=== PATIENT | male | born 1940 | race Caucasian/White ===

== ENCOUNTER 2016-06-10 17:02 | Observation (INO) | payer MEDICARE, BC ==
--- NOTE | 2016-06-10 18:31 | Emergency Department Record ---
History of Present Illness - General Chief complaint: GI Bleed Stated complaint: GI BLEED Time Seen by Provider: 06/10/16 17:05 Source: Patient Mode of Arrival: Ambulatory Limitations: No limitations - History of Present Illness Initial comments: pt had rectal bleeding this am. enough to turn the water red. he has no pain. he had this once previously and was scoped with no etiology found. MD complaint: Blood on toilet paper, Blood streaked stool, Gross hematochezia Onset/Timin -: Hour(s) Radiation: None Quality: Painless Improves with: None Worsens with: Bowel movement Context: Blood thinners Associated Symptoms: Denies other symptoms Treatments Prior to Arrival: None - Related Data Home Medications Medication Instructions Recorded Confirmed Last Taken Allopurinol [Zyloprim] 300 mg PO DAILY 09/02/15 06/10/16 01/25/16 Amlodipine Besylate [Norvasc] 5 mg PO DAILY 09/02/15 06/10/16 06/09/16 Ascorbic Acid [Vitamin C] 1,000 mg PO DAILY 09/02/15 06/10/16 01/25/16 Cholecalciferol (Vitamin D3) 1,000 unit PO DAILY 09/02/15 06/10/16 01/25/16 [Vitamin D3] Insulin Glargine,Hum.rec.anlog 26 unit SQ QPM 09/02/15 06/10/16 01/25/16 [Lantus] Metformin HCl [Glucophage] 850 mg PO BID 09/02/15 06/10/16 01/25/16 Rivaroxaban [Xarelto] 20 mg PO DAILY 09/02/15 06/10/16 01/25/16 Simvastatin [Zocor] 20 mg PO QHS 09/02/15 06/10/16 06/09/16 Allergies Allergy/AdvReac Type Severity Reaction Status Date / Time aspirin Allergy HIVES Verified 06/10/16 17:15 Penicillins Allergy PT UNSURE Verified 06/10/16 17:15 OF REACTION Sulfa (Sulfonamide Allergy RASH Verified 06/10/16 17:15 Antibiotics) lactose AdvReac NAUSEA AND Verified 06/10/16 17:15 VOMITING Travel Screening - Travel/Exposure Within Last 30 Days Have you traveled within the last 30 days?: No Review of Systems Reviewed: No additional complaints except as noted below Constitutional: Reports: As per HPI. Denies: Chills, Fever, Malaise, Night sweats, Weakness, Weight change Eyes: Reports: As per HPI. Denies: Eye discharge, Eye pain, Photophobia, Vision change ENT: Reports: As per HPI. Denies: Congestion, Dental pain, Ear pain, Epistaxis , Hearing loss, Throat pain Respiratory: Reports: As per HPI. Denies: Cough, Dyspnea, Hemoptysis, Stridor, Wheezes Cardiovascular: Reports: As per HPI. Denies: Arrhythmia, Chest pain, Dyspnea on exertion, Edema, Murmurs, Orthopnea, Palpitations, Paroxysmal nocturnal dyspnea, Rheumatic Fever, Syncope Endocrine: Reports: As per HPI. Denies: Fatigue, Heat or cold intolerance, Polydipsia, Polyuria Gastrointestinal: Reports: As per HPI. Denies: Abdominal pain, Constipation, Diarrhea, Hematemesis, Hematochezia, Melena, Nausea, Vomiting Genitourinary: Reports: As per HPI. Denies: Dysuria, Frequency, Hematuria, Incontinence, Retention, Testicular pain, Testicular mass, Urgency Musculoskeletal: Reports: As per HPI. Denies: Arthralgia, Back pain, Gout, Joint swelling, Myalgia, Neck pain Skin: Reports: As per HPI. Denies: Bruising, Change in color, Change in hair/ nails, Lesions, Pruritus, Rash Neurological: Reports: As per HPI. Denies: Abnormal gait, Confusion, Headache, Numbness, Paresthesias, Seizure, Tingling, Tremors, Vertigo, Weakness Psychiatric: Reports: As per HPI. Denies: Anxiety, Auditory hallucinations, Depression, Homicidal thoughts, Suicidal thoughts, Visual hallucinations Hematological/Lymphatic: Reports: As per HPI. 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 3L home O2. - CARDIOVASCULAR Hx Cardio Disorders: Yes Hx Hypertension: Yes Hx Irregular Heartbeat: Yes (A-fib) Comment:: High cholesterol - NEURO Hx Neuro Disorders: Yes Hx Neuropathy: Yes (Jean Paul. Lower extremities) - GI Hx GI Disorders: No - Hx Genitourinary Disorders: Yes Hx Bladder Problem: Yes Hx Kidney Stones: Yes Hx UTI: Yes - ENDOCRINE Hx Endocrine Disorders: No Hx Diabetes: Yes Hx Thyroid Disease: No - MUSCULOSKELETAL Hx Musculoskeletal Disorders: Yes Hx Gout: Yes - PSYCH Hx Psych Problems: No - HEMATOLOGY/ONCOLOGY Hx Hematology/Oncology Disorders: Yes Hx Cancer: Yes (Testicular) Hx Chemotherapy: Yes Hx Radiation Therapy: Yes Family Medical History Any Significant Family History?: Yes Hx Cancer: Mother Hx Diabetes: Father, Brother/Sister Hx Heart Disease: Father Physical Exam - General General Appearance: Alert, Oriented x3, Cooperative, No acute distress - Head Head exam: Normal inspection - Eye Eye exam: Normal appearance, PERRL, EOMI Pupils: Normal accommodation - ENT ENT exam: Normal exam, Mucous membranes moist, Normal external ear exam, Normal orophraynx Ear exam: Normal external inspection. negative: External canal tenderness Nasal Exam: Normal inspection. negative: Discharge, Sinus tenderness Mouth exam: Normal external inspection, Tongue normal Teeth exam: Normal inspection. negative: Dental caries Throat exam: Normal inspection. negative: Tonsillar erythema, Tonsillar exudate - Neck Neck exam: Normal inspection, Full ROM. negative: Tenderness - Respiratory Respiratory exam: Normal lung sounds bilaterally. negative: Respiratory distress - Cardiovascular Cardiovascular Exam: Regular rate, Normal rhythm, Normal heart sounds - GI/Abdominal GI/Abdominal exam: Soft, Normal bowel sounds. negative: Tenderness - Rectal Rectal exam: Heme (+) stool, Other (gross blood surrounding rectum) - exam: Deferred - Extremities Extremities exam: Normal inspection, Full ROM, Normal capillary refill. negative: Tenderness - Back Back exam: Reports: Normal inspection, Full ROM. Denies: Muscle spasm, Rash noted, Tenderness - Neurological Neurological exam: Alert, Normal gait, Oriented X3, Reflexes normal - Psychiatric Psychiatric exam: Normal affect, Normal mood - Skin Skin exam: Dry, Intact, Normal color, Warm Course Vital Signs 06/10/16 17:08 Temperature 97.9 F Pulse Rate 98 H Respiratory 16 Rate Blood Pressure 143/86 Pulse Ox 97 Medical Decision Making - Management Options MDM Management: Additional Work-up Planned (e.g. ADM/Transfer/OP Study) - Data Complexity MDM Data: Labs Ordered and/or Reviewed - Lab Data Result diagrams: 06/10/16 19:01 06/10/16 19:01 Disposition Disposition: Admit Clinical Impression: Lower GI bleed Disposition: Still a Patient at [facility] Decision to Admit: Admit from ER Decision to Admit Date: 06/10/16 Decision to Admit Time: 20:01 Forms: Patient Portal Access
[2016-06-10 19:03] LABS: BASO % 0.2 % (0-6); EOS % 2.6 % (0-6); GRAN % 73.6 % (47-80); HEMATOCRIT 38.5 % (42.0-52.0); HEMOGLOBIN 12.3 gm/dl (14.0-18.0); LYMPH % 17.1 % (16-45); MEAN CELL VOLUME 86.1 fl (81-97); MEAN CORPUSCULAR HEMOGLOBIN 27.5 pg (27-33); MEAN CORPUSCULAR HGB CONC 31.9 g/dl (32-36); MEAN PLATELET VOLUME 11.1 fl (7.4-10.4); MONO % 6.5 % (0-9); PLATELET COUNT 244 K/uL (130-400); RED BLOOD COUNT 4.47 M/uL (4.40-5.70); RED CELL DISTRIBUTION WIDTH 14.7 % (11.5-14.5); WHITE BLOOD COUNT W/O DIFF 8.4 K/uL (4.2-12.2)
[2016-06-10 19:15] LABS: ANION GAP 14.6 (7-16); BLOOD UREA NITROGEN 25 mg/dL (9-20); CARBON DIOXIDE 30.4 mmol/L (22-30); CREATININE 1.1 mg/dL (0.66-1.25); EST GLOMERULAR FILTRATION RATE > 60 ml/min; GLUCOSE,RANDOM 152 mg/dL (70-110)
[2016-06-10 19:17] LABS: INR 1.04; PARTIAL THROMBOPLASTIN TIME 28.7 SECONDS (24.5-39.1); PROTHROMBIN TIME (PATIENT) 11.7 SECONDS (9.5-12.1)
[2016-06-10] MEDS ORDERED: ACETAMINOPHEN 500 MG TABLET PO PRN (21:00)
[2016-06-10] MEDS ORDERED: POTASSIUM CHLORIDE 10 MEQ TAB PO SCH (21:00)
[2016-06-10 21:30] LABS: ABO GROUP A; ANTIBODY SCREEN NEGATIVE (NEGATIVE); RH TYPE NEGATIVE
[2016-06-10] MEDS ORDERED: [UNRECOGNIZED DRUG - OTHER] INH SCH (22:00)
[2016-06-10] MEDS ORDERED: METFORMIN HCL 850 MG PO SCH (22:00)
[2016-06-10] MEDS ORDERED: SIMVASTATIN 20 MG TABLET PO SCH (22:00)
[2016-06-10] MEDS ORDERED: BUMETANIDE 1 MG TABLET PO SCH (22:00)
--- NOTE | 2016-06-11 05:50 | History & Physical ---
History of Present Illness - Date of Service Date of Service for History & Physical: 06/11/16 - History of Present Illness Admitting Diagnosis: rectal bleeding History of Present Illness: 76 yo m admitted with cc of rectal bleeding. Past medical history of HTN, atrial fibrillation, elevated cholesterol, chronic bilateral lower extremity neuropathy, nephrolithiasis, insulin dependent diabetes mellitus type 2, gout, arthritis, testicular cancer diagnosed 7years ago and treated with chemotherapy and radiation, GUSTABO, CHF, obesity and venous insufficiency. 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 Rectal bleeding began 06/10/16 around 11am. Patient states he had a bowel movement and noted blood on the toilet paper and in the toilet bowl. He can't give me an estimate of how much. He then laid down for a few hours and when he went to the restroom again a few hours later, he noted BRB on the toilet paper once again. He denies any aggravating factors. Alleviated on it's own. No associated symptoms. States he had GI upset back in the fall though denies any since that resolved. No diarrhea, constipation, abd or rectal pain, lightheadedness, dizziness, fatigue, acid reflux, increased gas/bloating, CP or N/V. While in the ER, VSS, hgb 12.3 (about baseline for patient), hct 38.5, plt 244, wbc 8.4, electrolytes normal, BUN 25, Cr. 1.1, glucose 152. PT/INR normal. Patient denies any rectal exam in the, however states the ED physician noted bright red blood on back side. Noting patient is anticoagulated for h/o atrial fibrillation, he was admitted for further medical management. This morning, patient is lying in bed comfortably. He denies any GI bleeding. He has not had any bowel movements. Denies any GI symptoms. No lightheadedness or dizziness. Tolerated breakfast. Reports h/o GI bleed 4-5 years ago though states a source was never found. Last EGD/colonoscopy was at this time at [facility]. No personal or family h/o CRC or IBD. Denies any daily NSAID use. No change in bowel habits. No additional concerns at this time. PCP: Dr. Denson Travel Screening - Travel/Exposure Within Last 30 Days Have you traveled within the last 30 days?: No - Travel/Exposure Within Last Year Have you traveled outside the [place] in the last year?: No - Additonal Travel Details Have you been exposed to anyone with a communicable illness?: No Review of Systems Constitutional: Reports: As per HPI. Denies: Chills, Fever, Malaise, Night sweats, Weakness, Weight change Eyes: Reports: As per HPI. Denies: Eye discharge, Eye pain, Photophobia, Vision change ENT: Reports: As per HPI. Denies: Congestion, Dental pain, Ear pain, Epistaxis , Hearing loss, Throat pain Respiratory: Reports: As per HPI. Denies: Cough, Dyspnea, Hemoptysis, Stridor, Wheezes Cardiovascular: Reports: As per HPI. Denies: Arrhythmia, Chest pain, Dyspnea on exertion, Edema, Murmurs, Orthopnea, Palpitations, Paroxysmal nocturnal dyspnea, Rheumatic Fever, Syncope Endocrine: Reports: As per HPI. Denies: Fatigue, Heat or cold intolerance, Polydipsia, Polyuria Gastrointestinal: Reports: As per HPI. Denies: Abdominal pain, Constipation, Diarrhea, Hematemesis, Hematochezia, Melena, Nausea, Vomiting Genitourinary: Reports: As per HPI. Denies: Dysuria, Frequency, Hematuria, Incontinence, Retention, Testicular pain, Testicular mass, Urgency Musculoskeletal: Reports: As per HPI. Denies: Arthralgia, Back pain, Gout, Joint swelling, Myalgia, Neck pain Skin: Reports: As per HPI. Denies: Bruising, Change in color, Change in hair/ nails, Lesions, Pruritus, Rash Neurological: Reports: As per HPI. Denies: Abnormal gait, Confusion, Headache, Numbness, Paresthesias, Seizure, Tingling, Tremors, Vertigo, Weakness Psychiatric: Reports: As per HPI. Denies: Anxiety, Auditory hallucinations, Depression, Homicidal thoughts, Suicidal thoughts, Visual hallucinations Hematological/Lymphatic: Reports: As per HPI. 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 3L home O2. - CARDIOVASCULAR Hx Cardio Disorders: Yes Hx Hypertension: Yes Hx Irregular Heartbeat: Yes (A-fib) Comment:: High cholesterol - NEURO Hx Neuro Disorders: Yes Hx Neuropathy: Yes (Jean Paul. Lower extremities) - GI Hx GI Disorders: No - Hx Genitourinary Disorders: Yes Hx Bladder Problem: Yes (urge incontinence) Hx Kidney Stones: Yes Hx UTI: Yes - ENDOCRINE Hx Endocrine Disorders: No Hx Diabetes: Yes Hx Thyroid Disease: No - MUSCULOSKELETAL Hx Musculoskeletal Disorders: Yes Hx Gout: Yes - PSYCH Hx Psych Problems: No - HEMATOLOGY/ONCOLOGY Hx Hematology/Oncology Disorders: Yes Hx Cancer: Yes (Testicular) Hx Chemotherapy: Yes Hx Radiation Therapy: Yes Family Medical History Any Significant Family History?: Yes Hx Cancer: Mother Hx Diabetes: Father, Brother/Sister Hx Heart Disease: Father H&P Meds/Allergies - Allergies Allergies: Allergies Allergy/AdvReac Type Severity Reaction Status Date / Time aspirin Allergy HIVES Verified 06/10/16 17:15 Penicillins Allergy PT UNSURE Verified 06/10/16 17:15 OF REACTION Sulfa (Sulfonamide Allergy RASH Verified 06/10/16 17:15 Antibiotics) lactose AdvReac NAUSEA AND Verified 06/10/16 17:15 VOMITING - Home Medications Home Medications Medication Instructions Recorded Confirmed Last Taken Allopurinol [Zyloprim] 300 mg PO DAILY 09/02/15 06/10/16 1 Day Ago Amlodipine Besylate [Norvasc] 5 mg PO DAILY 09/02/15 06/10/16 06/09/16 Ascorbic Acid [Vitamin C] 1,000 mg PO DAILY 09/02/15 06/10/16 01/25/16 Cholecalciferol (Vitamin D3) 1,000 unit PO DAILY 09/02/15 06/10/16 01/25/16 [Vitamin D3] Insulin Glargine,Hum.rec.anlog 26 unit SQ QPM 09/02/15 06/10/16 06/10/16 [Lantus] Metformin HCl [Glucophage] 850 mg PO BID 09/02/15 06/10/16 1 Day Ago Rivaroxaban [Xarelto] 20 mg PO DAILY 09/02/15 06/10/16 1 Day Ago Simvastatin [Zocor] 20 mg PO QHS 09/02/15 06/10/16 1 Day Ago - Active Medications Active Medications: Current Medications Acetaminophen (Tylenol 500mg Tab) 1,000 mg PO Q6H PRN PRN Reason: PAIN/TEMP Amlodipine Besylate (Norvasc) 5 mg PO DAILY [facility] Bumetanide (Bumex) 1 mg PO BID [facility] Last Admin: 06/10/16 21:35 Dose: 1 mg Non-Formulary Medication (Allopurinol [Zyloprim]) 300 mg PO DAILY [facility] Non-Formulary Medication (C Pap Mask) 0 unit INH QHS [facility] Non-Formulary Medication (Insulin Glargine,Hum.Rec.Anlog [Lantus]) 26 unit SQ QPM [facility] Non-Formulary Medication (Metformin Hcl [Glucophage]) 850 mg PO BID [facility] Last Admin: 06/10/16 21:35 Dose: 850 mg Non-Formulary Medication (Solifenacin Succinate [Vesicare]) 10 mg PO DAILY [facility] Potassium Chloride (Klor-Con) 10 meq PO QD [facility] Last Admin: 06/10/16 21:35 Dose: 10 meq Rivaroxaban (Xarelto) 20 mg PO DAILY [facility] Simvastatin (Zocor) 20 mg PO QHS [facility] Last Admin: 06/10/16 21:35 Dose: 20 mg Physical Exam - Vital Signs Vital Signs: Vital Signs - Last 24 Hrs Temp Pulse Resp BP Pulse Ox 06/10/16 21:30 70 20 06/10/16 21:00 97.6 F 73 20 140/73 96 - General General Appearance: Alert, Oriented x3, Cooperative, No acute distress Limitations: No limitations - Head Head exam: Normal inspection - Eye Eye exam: Normal appearance, PERRL, EOMI Pupils: Normal accommodation - ENT ENT exam: Normal exam, Mucous membranes moist, Normal external ear exam, Normal orophraynx Ear exam: Normal external inspection. negative: External canal tenderness Nasal Exam: Normal inspection. negative: Discharge, Sinus tenderness Mouth exam: Normal external inspection, Tongue normal Teeth exam: Normal inspection. negative: Dental caries Throat exam: Normal inspection. negative: Tonsillar erythema, Tonsillar exudate - Neck Neck exam: Normal inspection, Full ROM. negative: Tenderness - Respiratory Respiratory exam: Normal lung sounds bilaterally. negative: Respiratory distress - Cardiovascular Cardiovascular Exam: Regular rate, Normal rhythm, Normal heart sounds - GI/Abdominal GI/Abdominal exam: Soft, Normal bowel sounds. negative: Tenderness - Rectal Rectal exam: Heme (+) stool, Hemorrhoids (large external at 12 oclock position) , Other (gross blood surrounding rectum) - exam: Deferred - Extremities Extremities exam: Normal inspection, Full ROM, Normal capillary refill. negative: Tenderness - Back Back exam: Reports: Normal inspection, Full ROM. Denies: Muscle spasm, Rash noted, Tenderness - Neurological Neurological exam: Alert, Normal gait, Oriented X3, Reflexes normal - Psychiatric Psychiatric exam: Normal affect, Normal mood - Skin Skin exam: Dry, Intact, Normal color, Warm Results - Labs Result Diagrams: 06/11/16 06:25 06/10/16 19:01 VTE H&P Assessment - Risk for VTE Risk for VTE: Yes Risk Level: Moderate Risk Assessment Date: 06/11/16 Risk Assessment Time: 10:00 VTE Orders Placed or Will Be Placed: Yes Plan - Detailed Diagnosis and Plan (1) Lower GI bleed Current Visit: Yes Status: Acute Base Code: K92.2 - GASTROINTESTINAL HEMORRHAGE, UNSPECIFIED Comment: 06/11/16: anorectal vs. diverticular vs. other? rectal exam revealed large external hemorrhoid at 12 o clock position along w/ old blood. H/H stable. No rectal bleeding today. Will request EGD/Colonoscopy records from [facility]. Patient has appt with Dr. Alexis ([employer]) set up for Tuesday, Jun 14 @ 1430. Will continue to monitor for any signs of GI bleeding. Will continue anti coagulation as risk of stopping medication outweights benefit noting there's not present GI bleeding. (2) DVT prophylaxis Current Visit: No Status: Acute Base Code: [id number] - Priority: High Comment: 06/11/16: Patient is currently on xarelto. This will offer DVT prophylaxis (3) Anemia of chronic disease Current Visit: No Status: Acute Base Code: D63.8 - ANEMIA IN OTHER CHRONIC DISEASES CLASSIFIED ELSEWHERE Comment: 06/11/16: Hgb remains stable. no signs of GI bleeding during admission. (4) DNR (do not resuscitate) Current Visit: No Status: Acute Base Code: Z66 - DO NOT RESUSCITATE Comment: 06/11/16: Patient remains DNR while hospitalized
[2016-06-11 06:39] LABS: BASO % 0.1 % (0-6); EOS % 4.7 % (0-6); GRAN % 65.4 % (47-80); HEMATOCRIT 37.4 % (42.0-52.0); HEMOGLOBIN 11.9 gm/dl (14.0-18.0); LYMPH % 22.1 % (16-45); MEAN CELL VOLUME 86.6 fl (81-97); MEAN CORPUSCULAR HEMOGLOBIN 27.5 pg (27-33); MEAN CORPUSCULAR HGB CONC 31.8 g/dl (32-36); MEAN PLATELET VOLUME 10.9 fl (7.4-10.4); MONO % 7.7 % (0-9); PLATELET COUNT 233 K/uL (130-400); RED BLOOD COUNT 4.32 M/uL (4.40-5.70); RED CELL DISTRIBUTION WIDTH 14.6 % (11.5-14.5); WHITE BLOOD COUNT W/O DIFF 7.3 K/uL (4.2-12.2)
[2016-06-11] MEDS ORDERED: ALLOPURINOL 100 MG TAB PO SCH (10:00)
[2016-06-11] MEDS ORDERED: PATIENT OWN MED: VESICARE 10 MG PO SCH (10:00)
[2016-06-11] MEDS ORDERED: METFORMIN 850 MG PO SCH (10:00)
[2016-06-11] MEDS ORDERED: RIVAROXABAN 20 MG TABLET PO SCH (10:00)
[2016-06-11] MEDS ORDERED: POTASSIUM CHLORIDE 10 MEQ TAB PO SCH (10:00)
[2016-06-11] MEDS: BUMETANIDE 1 MG TABLET PO SCH ×2 (11:10→16:10)
--- NOTE | 2016-06-11 16:04 | Discharge Summary ---
Providers Discharge Summary Date: 06/11/16 Date of admission: 06/10/16 20:52 Expected Date of Discharge: 06/11/16 Attending physician: ORALIA GONZALEZ Primary care physician: ORALIA GONZALEZ Physical Exam - Vital Signs Vital Signs: Vital Signs - Last 24 Hrs Temp Pulse Resp BP Pulse Ox 06/11/16 13:00 98.1 F 82 18 143/77 96 06/11/16 09:00 20 06/11/16 05:00 97.7 F 74 20 138/74 95 06/10/16 21:30 70 20 06/10/16 21:00 97.6 F 73 20 140/73 96 - General General Appearance: Alert, Oriented x3, Cooperative, No acute distress Limitations: No limitations - Head Head exam: Normal inspection - Eye Eye exam: Normal appearance, PERRL, EOMI Pupils: Normal accommodation - ENT ENT exam: Normal exam, Mucous membranes moist, Normal external ear exam, Normal orophraynx Ear exam: Normal external inspection. negative: External canal tenderness Nasal Exam: Normal inspection. negative: Discharge, Sinus tenderness Mouth exam: Normal external inspection, Tongue normal Teeth exam: Normal inspection. negative: Dental caries Throat exam: Normal inspection. negative: Tonsillar erythema, Tonsillar exudate - Neck Neck exam: Normal inspection, Full ROM. negative: Tenderness - Respiratory Respiratory exam: Normal lung sounds bilaterally. negative: Respiratory distress - Cardiovascular Cardiovascular Exam: Regular rate, Normal rhythm, Normal heart sounds - GI/Abdominal GI/Abdominal exam: Soft, Normal bowel sounds. negative: Tenderness - Rectal Rectal exam: Hemorrhoids (large external at 12 oclock position) - exam: Deferred - Extremities Extremities exam: Normal inspection, Full ROM, Normal capillary refill. negative: Tenderness - Back Back exam: Reports: Normal inspection, Full ROM. Denies: Muscle spasm, Rash noted, Tenderness - Neurological Neurological exam: Alert, Normal gait, Oriented X3, Reflexes normal - Psychiatric Psychiatric exam: Normal affect, Normal mood - Skin Skin exam: Dry, Intact, Normal color, Warm Hospitalization - Hospitalization Admission Diagnosis: rectal bleeding - Problem List/Discharge Diagnosis (1) Lower GI bleed Current Visit: Yes Status: Acute Base Code: K92.2 - GASTROINTESTINAL HEMORRHAGE, UNSPECIFIED Comment: 06/11/16: anorectal vs. diverticular vs. other? rectal exam revealed large external hemorrhoid at 12 o clock position along w/ old blood. Previous colonoscopy from 2013 revealed internal hemorrhoids and sig/descending colon diverticulsosis. H/H stable. No rectal bleeding today. One normal brown stool w/o any evidence of blood. Patient has appt with Dr. Alexis ([employer]) set up for Tuesday, Jun 14 @ 1430 and myself June 14 @ 1430. Patient will continue all home medicaitons. He will return for scheduled visits. He agree's to return sooner re any new or worsening symptoms in the meantime such as returned rectal bleeding, abd pain, lightheadedness or dizziness. I offered to call in a hydrocortisone suppository for patient, however he's not interested at this time. (2) Anemia of chronic disease Current Visit: No Status: Acute Base Code: D63.8 - ANEMIA IN OTHER CHRONIC DISEASES CLASSIFIED ELSEWHERE Comment: 06/11/16: Hgb remains stable. no signs of GI bleeding during admission. (3) DNR (do not resuscitate) Current Visit: No Status: Acute Base Code: Z66 - DO NOT RESUSCITATE Comment: 06/11/16: Patient remained DNR while hospitalized - Hospitalization Course Disposition: Home, Self-Care Hospital Course: 76 yo m admitted with cc of rectal bleeding. Past medical history of HTN, atrial fibrillation, elevated cholesterol, chronic bilateral lower extremity neuropathy, nephrolithiasis, insulin dependent diabetes mellitus type 2, gout, arthritis, testicular cancer diagnosed 7years ago and treated with chemotherapy and radiation, GUSTABO, CHF, obesity and venous insufficiency. 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 Rectal bleeding began 06/10/16 around 11am. Patient states he had a bowel movement and noted blood on the toilet paper and in the toilet bowl. He can't give me an estimate of how much. He then laid down for a few hours and when he went to the restroom again a few hours later, he noted BRB on the toilet paper once again. He denies any aggravating factors. Alleviated on it's own. No associated symptoms. States he had GI upset back in the fall though denies any since that resolved. No diarrhea, constipation, abd or rectal pain, lightheadedness, dizziness, fatigue, acid reflux, increased gas/bloating, CP or N/V. While in the ER, VSS, hgb 12.3 (about baseline for patient), hct 38.5, plt 244, wbc 8.4, electrolytes normal, BUN 25, Cr. 1.1, glucose 152. PT/INR normal. Patient denies any rectal exam in the, however states the ED physician noted bright red blood on back side. Noting patient is anticoagulated for h/o atrial fibrillation, he was admitted for further medical management. This morning, patient is lying in bed comfortably. He denies any GI bleeding. He has not had any bowel movements. Denies any GI symptoms. No lightheadedness or dizziness. Tolerated breakfast. Reports h/o GI bleed 4-5 years ago though states a source was never found. Last EGD/colonoscopy was at this time at [facility]. No personal or family h/o CRC or IBD. Denies any daily NSAID use. No change in bowel habits. No additional concerns at this time. PCP: Dr. Denson received EGD/Colonoscopy reports from [facility]. Colonoscopy 05/2012: diverticulosis in sigmoid/descending colon, redundant colon preventing complete examination, internal hemorrhoids. EGD 08/2013: entire exam normal, several small superficial venous blebs No rectal bleeding since admission. one normal, brown stool w/o any blood. rectal exam revealed large external hemorrhoid with old blood. stool occult sent to lab. patient denies lightheadedness, dizziness, blood with wiping, hemoptysis, melena. Abnormal Labs: Abnormal Lab Results 06/11/16 06/11/16 Range/Units 06:25 07:45 RBC 4.32 L (4.40-5.70) M/uL Hgb 11.9 L (14.0-18.0) gm/dl Hct 37.4 L (42.0-52.0) % MCHC 31.8 L (32-36) g/dl RDW 14.6 H (11.5-14.5) % MPV 10.9 H (7.4-10.4) fl POC Glucose 161 H (70-110) mg/dL Condition at Discharge: (1) Good Discharge Medications - Discharge Medications Home Medications: Ambulatory Orders Allopurinol [Zyloprim] 300 mg PO DAILY 09/02/15 [Last Taken 1 Day Ago] Amlodipine Besylate [Norvasc] 5 mg PO DAILY 09/02/15 [Last Taken 06/09/16] Ascorbic Acid [Vitamin C] 1,000 mg PO DAILY 09/02/15 [Last Taken 01/25/16] Cholecalciferol (Vitamin D3) [Vitamin D3] 1,000 unit PO DAILY 09/02/15 [Last Taken 01/25/16] Insulin Glargine,Hum.rec.anlog [Lantus] 26 unit SQ QPM 09/02/15 [Last Taken ] Metformin HCl [Glucophage] 850 mg PO BID 09/02/15 [Last Taken 1 Day Ago] Rivaroxaban [Xarelto] 20 mg PO DAILY 09/02/15 [Last Taken 1 Day Ago] Simvastatin [Zocor] 20 mg PO QHS 09/02/15 [Last Taken 1 Day Ago] Discharge Plan - Discharge Instructions Activity at Discharge: Increase Activity as Tolerated Diet at Discharge: Regular Diet
[2016-06-11] MEDS ORDERED: LEVEMIR FLEXTOUCH 100 UNIT/ML INSULIN PEN SQ SCH (22:00)
[2016-06-11] MEDS ORDERED: AMLODIPINE BESYLATE 5MG TAB PO SCH (22:00)
== END 2016-06-11 17:10 | disposition home or self-care (01) ==
LOC: ER 17:02 → MEDSURG 20:52
PROVIDERS: ADMIT Family Medicine; ATTEND Family Medicine
DX: K92.2 Gastrointestinal hemorrhage, unspecified (principal); D63.8 Anemia in other chronic diseases classified elsewhere; Z66 Do not resuscitate; I10 Essential (primary) hypertension; I48.2 Chronic atrial fibrillation; Z79.01 Long term (current) use of anticoagulants; E11.42 Type 2 diabetes mellitus with diabetic polyneuropathy; Z79.4 Long term (current) use of insulin; E78.00 Pure hypercholesterolemia, unspecified; Z85.47 Personal history of malignant neoplasm of testis
CPT/HCPCS: 99285 ×2; 85025 ×2; 85730; 85610; 80048; 36416; 82948; 82272; 86900; 86901; 86850; G0378 ×2; 99220

== ENCOUNTER 2016-10-08 14:57 | Inpatient (IN) | payer MEDICARE, BC ==
[2016-10-08] MEDS ORDERED: OXYCODONE/APAP 10MG-325MG TABLET PO PRN (15:10)
[2016-10-08] MEDS: METFORMIN 500 MG TABLET PO SCH (19:35)
[2016-10-08] MEDS: BUMETANIDE 1 MG TABLET PO SCH (19:35)
[2016-10-08] MEDS: LEVEMIR FLEXTOUCH 100 UNIT/ML INSULIN PEN SQ SCH (21:44)
[2016-10-08] MEDS: SIMVASTATIN 20 MG TABLET PO SCH (21:44)
[2016-10-08] MEDS: AMLODIPINE BESYLATE 5MG TAB PO SCH (21:44)
[2016-10-09] MEDS: ASCORBIC ACID 500 MG TAB PO SCH (09:49)
[2016-10-09] MEDS: METFORMIN 500 MG TABLET PO SCH ×2 (09:50→17:40)
[2016-10-09] MEDS: BUMETANIDE 1 MG TABLET PO SCH ×2 (09:50→17:40)
[2016-10-09] MEDS: CHOLECALCIFEROL 1,000 UNIT TABLET PO SCH (09:50)
[2016-10-09] MEDS: POTASSIUM CHLORIDE 10 MEQ TAB PO SCH (09:50)
[2016-10-09] MEDS ORDERED: ONDANSETRON 4 MG ODT TABLET SL PRN (09:52)
--- NOTE | 2016-10-09 12:13 | History & Physical ---
History of Present Illness - Date Date of Service for History & Physical: 10/09/16 - History of Present Illness Admitting Diagnosis: deconditioning from laminectomy History of Present Illness: 76 yo m admitted to subacute rehab for weakness s/p bilateral L2-L4 laminectomy for stenosis. He has had intermittent lower back pain since fall in 1971 with decreased bladder control. He had been using a 4 wheeled walker for assistance with ambulation at baseline prior to surgery. Past medical history of HTN, atrial fibrillation, elevated cholesterol, chronic bilateral lower extremity neuropathy, nephrolithiasis, insulin dependent diabetes mellitus type 2, gout, arthritis, testicular cancer diagnosed 7years ago and treated with chemotherapy and radiation, GUSTABO, CHF, obesity and venous insufficiency. Patient is on xaralto for a. fib. 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 PCP: Dr. Denson Surgeon: John General - Cognitive Patterns Orientation: Oriented x3 - Communication Preferred Language?: [place] [employer] Required: No Level of Education: High School, College Preferred Method of Learning: Seeing, Doing Comprehension Ability: No Impairment Able to Read: Yes Able to Write: Yes Select best description of speech pattern: Clear Speech Ability to express ideas and wants: Understood Understanding verbal content: Understands - Psychosocial Well-Being Usual Living Arrangement: Alone - Physical Functioning Activity Level: Up with assist x2 Assistive Devices: 4 Wheel Walker Ambulation Ability: Needs Assist Bed Mobility: Needs Assist Transfer Ability: Needs Assist Bathing Ability: Needs Assist Personal Hygiene: Needs Assist Dressing Ability: Needs Assist Eating (Feeding) Ability: Independent Toileting Ability: Needs Assist - Continence Bowel Pattern: Normal for Patient Bladder Pattern: Urgency, Incontinent Urinary Incontinence: Functional - Dental Status Unable to examine: No Broken or loosely fitting full or partial dentures: No No natural teeth or tooth fragment(s) (edentulous): No Abnormal mouth tissue (ulcers, masses, oral lesions, etc.): No Obvious or likely cavity or broken natural teeth: No Inflamed or bleeding gums or loose natural teeth: No Mouth/facial pain, discomfort or difficulty chewing: No - Nutrition Screening Poor oral intake > 1 week: No Unplanned weight loss in specified time frame: No Nutrition Support via tube feedings or parenteral nutrition: No Pressure Ulcer: No Significantly underweight define as BMI <18.5 kg/m2: No Albumin <2.5mg/dL: No Persistent nausea/vomiting/diarrhea >3 days: No Difficulty chewing/swallowing/mouth sores: No Admitting Diagnosis: No Nutrition Risk Score: Low Risk Past Medical History - SOCIAL HISTORY Smoking Status: Never smoker - SURGICAL HISTORY Past Surgical History: cystoscopy. Jean Paul Big toes for calcium build up. right shoulder replacement. Appy. temporal artery biopsy. cateracts removal. L wrist for fracture repair and plate. muscle biopsy from arm. Testicle removed d/t CA kidney stone removal. orchiectomy. laminectomy - RESPIRATORY Hx Respiratory Disorders: Yes Hx Sleep Apnea: Yes (c-plex) Comment:: Phrenic nerve problem; 50% lung volume. 3L home O2. - CARDIOVASCULAR Hx Cardio Disorders: Yes Hx CHF: Yes Hx Hypertension: Yes Hx Irregular Heartbeat: Yes (A-fib) Comment:: High cholesterol - NEURO Hx Neuro Disorders: Yes Hx Neuropathy: Yes (Jean Paul. Lower extremities) - GI Hx GI Disorders: Yes Hx Rectal Bleeding: Yes - Hx Genitourinary Disorders: Yes Hx Bladder Problem: Yes (urge incontinence) Hx Kidney Stones: Yes Hx UTI: Yes - ENDOCRINE Hx Endocrine Disorders: No Hx Diabetes: Yes Hx Thyroid Disease: No - MUSCULOSKELETAL Hx Musculoskeletal Disorders: Yes Hx Arthritis: Yes Hx Back Injury: Yes Hx Gout: Yes - PSYCH Hx Psych Problems: No - HEMATOLOGY/ONCOLOGY Hx Hematology/Oncology Disorders: Yes Hx Cancer: Yes (Testicular lymphoma, basal cell skin) Hx Chemotherapy: Yes Hx Radiation Therapy: Yes Family Medical History Any Significant Family History?: Yes Hx Cancer: Mother, Brother/Sister Hx Diabetes: Father, Brother/Sister Hx Heart Disease: Father H&P Meds/Allergies - Allergies Allergies: Allergies Allergy/AdvReac Type Severity Reaction Status Date / Time aspirin Allergy HIVES Unverified 09/22/16 10:39 Penicillins Allergy PT UNSURE Unverified 09/22/16 10:39 OF REACTION Sulfa (Sulfonamide Allergy RASH Unverified 09/22/16 10:39 Antibiotics) lactose AdvReac NAUSEA AND Unverified 09/22/16 10:39 VOMITING - Home Medications Home Medications Medication Instructions Recorded Confirmed Last Taken Ascorbic Acid [Vitamin C] 1,000 mg PO DAILY 09/02/15 06/10/16 01/25/16 Cholecalciferol (Vitamin D3) 1,000 unit PO DAILY 09/02/15 06/10/16 01/25/16 [Vitamin D3] - Active Medications Active Medications: Current Medications Amlodipine Besylate (Norvasc) 5 mg PO QHS [facility] Last Admin: 10/08/16 21:44 Dose: 5 mg Ascorbic Acid (Vitamin C) 1,000 mg PO DAILY [facility] Last Admin: 10/09/16 09:49 Dose: 1,000 mg Bumetanide (Bumex) 1 mg PO BIDDIUR [facility] Last Admin: 10/09/16 09:50 Dose: 1 mg Insulin Detemir (Levemir Flextouch) 26 unit SQ QHS [facility] Last Admin: 10/08/16 21:44 Dose: 26 unit Metformin HCl (Glucophage Ir) 1,000 mg PO BIDWM [facility] Last Admin: 10/09/16 09:50 Dose: 1,000 mg Ondansetron HCl (Zofran Odt) 4 mg SL Q8H PRN PRN Reason: NAUSEA/VOMITING Last Admin: 10/09/16 09:56 Dose: 4 mg Oxycodone/Acetaminophen (Percocet 10-325 Mg Tablet) 1 each PO Q6H PRN PRN Reason: Pain - Severe (8-10) Potassium Chloride (Klor-Con) 10 meq PO DAILY [facility] Last Admin: 10/09/16 09:50 Dose: 10 meq Simvastatin (Zocor) 20 mg PO QHS [facility] Last Admin: 10/08/16 21:44 Dose: 20 mg Tizanidine HCl (Tizanidine Hcl) 4 mg PO Q8H PRN PRN Reason: MUSCLE SPASMS Vitamin D (Vitamin D3) 1,000 unit PO DAILY [facility] Last Admin: 10/09/16 09:50 Dose: 1,000 unit Physical Exam - Vital Signs Vital Signs: Vital Signs - Last 24 Hrs Temp Pulse Resp BP BP Pulse Ox 10/09/16 09:21 98.9 F 131/83 10/08/16 17:33 98.8 F 73 22 131/83 90 L H&P Results - Labs Labs Last 24 Hours: Laboratory Results - last 24 hr 10/08/16 10/09/16 21:30 07:09 POC Glucose 151 H 144 H Discharge Potential - Discharge Needs Community Services Used Prior to Admission: None Patient Discharge Plan Description: Return Home Community Services Needed at Discharge: None Plan - Swing Bed Certification Initial Certification Due: 10/08/16 14 Day Re-Cert Due: 10/22/16 44 Day Re-Cert Due: 11/21/16 76 Day Re-Cert Due: 12/21/16 - Detailed Diagnosis and Plan (1) Weakness Current Visit: Yes Status: Acute Base Code: R53.1 - WEAKNESS Comment: 10/09 - admitted for sub acute rehab s/p laminectomy due to stenosis oxycodone 10mg for pain control (2) History of laminectomy Current Visit: Yes Status: Acute Base Code: Z98.890 - OTHER SPECIFIED POSTPROCEDURAL STATES (3) Diabetes mellitus type 2, insulin dependent Current Visit: No Status: Acute Base Code: E11.9 - TYPE 2 DIABETES MELLITUS WITHOUT COMPLICATIONS; 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 fib
[2016-10-09] MEDS: ACETAMINOPHEN 500 MG TABLET PO PRN (12:39)
--- NOTE | 2016-10-09 14:23 | Rehab Evaluation ---
Patient Information - Patient Information Diagnosis: Lumbar Laminectomy Ordered Treatment: PT Evaluate and Treat Status: Initial Evaluation Surgery: Yes (B lumbar laminectomy L2-4) Date of Surgery: 10/04/16 History: Detail (Pt. reports history of chronic LBP that has become more intense over the years prior to surgical date for laminectomy. Pt. reports no trauma to thoracic/cervical spine.) Past Med/Alan Hx Detail: Detail (Pt. has PMH significant for: HTN, atrial fibrillation, B LE neuropathy, type II diabetes, CHF, venous insufficiency. Please see additional intake forms for complete PMH. Pt. does report his "phrenic nerve suddenly stopped working" and he has had difficulty breathing since.) Past Medical/Surgical Hx: PAST MEDICAL/SURGICAL HISTORY Past Surgical History cystoscopy Jean Paul Big toes for calcium build up right shoulder replacement Appy temporal artery biopsy cateracts removal L wrist for fracture repair and plate muscle biopsy from arm Testicle removed d/t CA kidney stone removal orchiectomy laminectomy PMH - Respiratory Hx Respiratory Disorders Yes Hx Sleep Apnea Yes: c-plex Hx of CPAP Yes Comment: Phrenic nerve problem; 50% lung volume. 3L home O2. PMH - Cardiovascular Hx Cardiovascular Disorders Yes Hx Congestive Heart Failure Yes Hx Hypertension Yes Hx Irregular Heartbeat Yes: A-fib Comment: High cholesterol PMH - Neuro Hx Neurological Disorders Yes Hx Neuropathy Yes: Jean Paul. Lower extremities PMH - GI Hx Gastrointestinal Disorders Yes Hx Rectal Bleeding Yes PMH - Hx Genitourinary Disorders Yes Hx Bladder Problem Yes: urge incontinence Hx Kidney Stones Yes Hx Urinary Tract Infection Yes PMH - Endocrine Hx Endocrine Disorders No Hx Diabetes Yes Hx Thyroid Disease No PMH - Musculoskeletal Hx Musculoskeletal Disorders Yes Hx Arthritis Yes Hx Back Injury Yes Hx Gout Yes PMH - Psych Hx Psychiatric Problems No PMH - Hematology/Oncology Hx Hematology/Oncology Yes Disorders Hx Cancer Yes: Testicular lymphoma, basal cell skin Hx Chemotherapy Yes Hx Radiation Therapy Yes Premorbid Status: Detail (Pt. reports slowly worsening of LBP.) Social History: Detail (Pt. lives alone in a trailer with 4 steps leading into the home and hand rails on both sides. Pt. has grab bars installed in the bathroom. 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 Pt. has a four wheeled walker and is expecting a new one. Pt. reports that his right break does not work on the current walker that he has. Pt. reports that his mattress at home needs to be replaced and that he has difficulty sleeping.) Precautions: [place] (Pt. has the following restrictions regarding his low back: no bending, lifting, twisting.), Fall, Other - Time With Patient Total Time Spent With Patient (Min): 60 Treatment Procedures: Detail (Physical Therapy Evaluation completed. 02 sat room air 96%, quickly dropped to 89% without CPAP. BP 161/69. Pt. may be appropriate for supplemental 02 for following PT appointments given fatigue and drop in 02 sat without cpap. Pt. was left supine with call light available, CPAP , and nursing was notified of pt.'s status.) Subjective Information - Subjective Information Per Patient (Pt. reports resting pain 0/10. Pt. was nauseous prior to medication , which has helped his sx. Pt. reports that he would like to transfer without gait belt and have therapist grab his left arm to stand. Pt. was instructed that use of gait belt is required with ambulation and safe transfers.) Objective Data - Pain Pain Present: No Pain Intensity: 0 Pain Scale Used: Numeric (1 - 10) - Mental Status Patient Orientation: Oriented x3 - Visual Perception Appears within normal limits for therapeutic activities - ROM Other (Trunk flexion and rotation not tested, side bending within functional limits B. BLE withink functional limits.) - Strength/Tone Within normal limits (LLE 3+/5 grossly except ankle dorsiflexion and plantarflexion; RLE 4+/5 grossly. BUE 5/5 grossly.) - Coordination Appears within normal limits for therapeutic activities - Bed Mobility Dependent (Pt. required max assist x1 with supine to seated transfer. Pt. required mod assist x2 with bed mobility to reposition while supine to head of bed via sheet. Pt. understood use of LEs to extend and assist with transfers, along with use of trapeeze for bed mobility and repositioning. Pt. demonstrated good understanding of precautions and was slow with transfer to ensure neutral spinal positioning. Pt. did require assistance with swinging his LEs over edge of bed.) - Transfers Needs Assist (Pt. required moderate assistance x1 with sit<->stand transfer.) - Balance Balance Sitting: Fair (Pt. did not maintain midline orientation and held his trunk in a lateral flexed position to his L side when seated.) Balance Standing: Fair (Pt. maintained upright positioning but quickly lost control wwith perturbation testing in all directions while standing.) - Sensation Deficit (Protective sensation not intact. Diminished light touch at S1 dermatomes B.) - Gait Detail (Pt. not assessed due to request to sit following standing assessment.) - ADL's/IADL's Detail (Pt. I with use of CPAP.) - Special Tests Yes (Negative Sumit's, B.) Therapy Assessment - Therapy Assessment Detail (Lower extremity weakness, fair standing balance, fatigue limiting gait assessment, diminished sensation, trunk weakness/restricted ROM secondary to surgery, dependence with bed mobility and transfer. Pt. is a good candidate for PT services to improve safety awareness, LE strength needed for transfers, biomechanics with bed mobility and overall safe transfers, and balance/gait training for safe ambulation.) Patient Education - Patient Education Teaching Topic: Disease Process (Presentation of weakness and sensory impairment.), Equipment Use (Pt. instructed on walker placement with sit to stand transfer.), Exercise/Activity (Pt. was instructed to perform sciatic nerve glides either seated or supine.) Response: Verbalize Understanding Teaching Method: Discussion Teaching Recipient: Patient Barriers To Learning: None Problem List - Problem List Physical Therapy Problem List: Detail (1) LE weakness 2) Balance impairment 3) Poor safety awareness 4) Dependence with bed mobility and transfer) Goals - Goals Physical Therapy Goals: 1) Pt. will independently ambulate community distances with front wheeled walker without gait deviation or fall risk. 2) Pt. will independently ascend and descend 4 steps without gait deviation for safe return to home environment. 3) Pt. will present with good standing balance and not exhibit loss of midline positioning with light perturbation testing in all directions for improved balance. 4) Pt. will independently perform bed mobility and transfers with good understanding of precautions. 5) Pt. will be independent with HEP. Prognosis - Prognosis Good (Pt. is expected to achieve LTG completion following therapy visits to improve bed mobility and transfer strategies. Pt. was not assessed for ambulation.) Plan - Plan Physical Therapy Plan: Pt. is to be seen 1-2x per day for physical therapy M-F until goal completion has been met for safe return to home environment.
[2016-10-09] MEDS: AMLODIPINE BESYLATE 5MG TAB PO SCH (21:34)
[2016-10-09] MEDS: SIMVASTATIN 20 MG TABLET PO SCH (21:34)
[2016-10-09] MEDS: TIZANIDINE HCL 4 MG TABLET PO PRN (21:34)
[2016-10-09] MEDS: LEVEMIR FLEXTOUCH 100 UNIT/ML INSULIN PEN SQ SCH (21:34)
[2016-10-10] MEDS: ACETAMINOPHEN 500 MG TABLET PO PRN ×2 (06:45→12:04)
[2016-10-10] MEDS: METFORMIN 500 MG TABLET PO SCH ×2 (08:18→17:30)
[2016-10-10] MEDS: POTASSIUM CHLORIDE 10 MEQ TAB PO SCH (10:14)
[2016-10-10] MEDS: BUMETANIDE 1 MG TABLET PO SCH ×2 (10:14→17:31)
[2016-10-10] MEDS: CHOLECALCIFEROL 1,000 UNIT TABLET PO SCH (10:14)
[2016-10-10] MEDS: ASCORBIC ACID 500 MG TAB PO SCH (12:05)
[2016-10-10] MEDS: AMLODIPINE BESYLATE 5MG TAB PO SCH (21:42)
[2016-10-10] MEDS: SIMVASTATIN 20 MG TABLET PO SCH (21:42)
[2016-10-10] MEDS: LEVEMIR FLEXTOUCH 100 UNIT/ML INSULIN PEN SQ SCH (21:45)
[2016-10-11] MEDS: TIZANIDINE HCL 4 MG TABLET PO PRN (01:09)
[2016-10-11] MEDS: METFORMIN 500 MG TABLET PO SCH ×2 (08:04→17:28)
[2016-10-11] MEDS: BUMETANIDE 1 MG TABLET PO SCH ×2 (09:26→15:08)
[2016-10-11] MEDS: POTASSIUM CHLORIDE 10 MEQ TAB PO SCH (09:26)
[2016-10-11] MEDS: ASCORBIC ACID 500 MG TAB PO SCH (09:27)
[2016-10-11] MEDS: CHOLECALCIFEROL 1,000 UNIT TABLET PO SCH (09:27)
[2016-10-11] MEDS: SIMVASTATIN 20 MG TABLET PO SCH (21:23)
[2016-10-11] MEDS: LEVEMIR FLEXTOUCH 100 UNIT/ML INSULIN PEN SQ SCH (21:23)
[2016-10-11] MEDS: AMLODIPINE BESYLATE 5MG TAB PO SCH (21:23)
[2016-10-12] MEDS: ACETAMINOPHEN 500 MG TABLET PO PRN ×3 (00:54→22:14)
[2016-10-12] MEDS: METFORMIN 500 MG TABLET PO SCH ×2 (08:25→17:06)
[2016-10-12] MEDS: BUMETANIDE 1 MG TABLET PO SCH ×2 (08:30→17:06)
[2016-10-12] MEDS: POTASSIUM CHLORIDE 10 MEQ TAB PO SCH (11:13)
[2016-10-12] MEDS: ASCORBIC ACID 500 MG TAB PO SCH (11:13)
[2016-10-12] MEDS: CHOLECALCIFEROL 1,000 UNIT TABLET PO SCH (11:13)
--- NOTE | 2016-10-12 11:56 | Rehab Evaluation ---
Patient Information - Patient Information Diagnosis: deconditioning d/t Lumbar Laminectomy Ordered Treatment: OT Evaluate and Treat Status: Initial Evaluation Surgery: Yes (B lumbar laminectomy L2-4) Date of Surgery: 10/04/16 History: Detail (Pt. reports history of chronic LBP that has become more intense over the years prior to surgical date for laminectomy. Pt. reports no trauma to thoracic/cervical spine.) Past Med/Alan Hx Detail: Detail (Pt. has PMH significant for: HTN, atrial fibrillation, B LE neuropathy, type II diabetes, CHF, venous insufficiency. Please see additional intake forms for complete PMH. Pt. does report his "phrenic nerve suddenly stopped working" and he has had difficulty breathing since.) Past Medical/Surgical Hx: PAST MEDICAL/SURGICAL HISTORY Past Surgical History cystoscopy Jean Paul Big toes for calcium build up right shoulder replacement Appy temporal artery biopsy cateracts removal L wrist for fracture repair and plate muscle biopsy from arm Testicle removed d/t CA kidney stone removal orchiectomy laminectomy PMH - Respiratory Hx Respiratory Disorders Yes Hx Sleep Apnea Yes: c-plex Hx of CPAP Yes Comment: Phrenic nerve problem; 50% lung volume. 3L home O2. PMH - Cardiovascular Hx Cardiovascular Disorders Yes Hx Congestive Heart Failure Yes Hx Hypertension Yes Hx Irregular Heartbeat Yes: A-fib Comment: High cholesterol PMH - Neuro Hx Neurological Disorders Yes Hx Neuropathy Yes: Jean Paul. Lower extremities PMH - GI Hx Gastrointestinal Disorders Yes Hx Rectal Bleeding Yes PMH - Hx Genitourinary Disorders Yes Hx Bladder Problem Yes: urge incontinence Hx Kidney Stones Yes Hx Urinary Tract Infection Yes PMH - Endocrine Hx Endocrine Disorders No Hx Diabetes Yes Hx Thyroid Disease No PMH - Musculoskeletal Hx Musculoskeletal Disorders Yes Hx Arthritis Yes Hx Back Injury Yes Hx Gout Yes PMH - Psych Hx Psychiatric Problems No PMH - Hematology/Oncology Hx Hematology/Oncology Yes Disorders Hx Cancer Yes: Testicular lymphoma, basal cell skin Hx Chemotherapy Yes Hx Radiation Therapy Yes Premorbid Status: Detail (Pt. reports slowly worsening of LBP.) Social History: Detail (Pt. lives alone in a trailer with 4 steps leading into the home and hand rails on both sides. He has a tub/shower combination with a shower seat, hand held shower and 2 grab bars. He has a handicap toilet. Pt. has a four wheeled walker and a standard walker. He is responsible for home mgmt and meal prep, his sister does his laundry.) Precautions: [place] (Pt. has the following restrictions regarding his low back: no bending, lifting, twisting.), Fall - Time With Patient Total Time Spent With Patient (Min): 35 Treatment Procedures: Detail (OT eval low complexity) Subjective Information - Subjective Information Per Patient Objective Data - Pain Pain Present: Yes (5-10/23) - Mental Status Patient Orientation: Oriented x3 - Visual Perception Appears within normal limits for therapeutic activities - ROM Within normal limits (Jean Paul UE AROM WNL) - Strength/Tone Within normal limits (Jean Paul UE MMT 4+/5) - Coordination Appears within normal limits for therapeutic activities - Transfers Independent (Ind with sit to stand from recliner chair.) - Balance Balance Sitting: Good Balance Standing: Good - Sensation Intact - Gait Detail (Pt amb in hallway with 4 wheeled walker and SBA.) - ADL's/IADL's Detail (Pt reports he is toileting with nursing supervision. He has not attempted other ADLs at this time.) Therapy Assessment - Therapy Assessment Detail (Pt presents with decreased endurance, decreased Ind with self cares due to surgical precautions, increased pain.) Problem List - Problem List Physical Therapy Problem List: Detail (1) LE weakness 2) Balance impairment 3) Poor safety awareness 4) Dependence with bed mobility and transfer) Occupational Therapy Problem List: Detail (1. Decreased Ind with showering and dressing activities. 2. Decreased endurance needed for self cares and functional mobility.) Goals - Goals Physical Therapy Goals: 1) Pt. will independently ambulate community distances with front wheeled walker without gait deviation or fall risk. 2) Pt. will independently ascend and descend 4 steps without gait deviation for safe return to home environment. 3) Pt. will present with good standing balance and not exhibit loss of midline positioning with light perturbation testing in all directions for improved balance. 4) Pt. will independently perform bed mobility and transfers with good understanding of precautions. 5) Pt. will be independent with HEP. Occupational Therapy Goals: 1. Pt will be safe and Ind with total body dressing with use of adaptive equipment as needed. 2. Pt will be safe and Ind with showering in sitting. 3. Pt will demonstrate increased endurance needed for safe and Ind self cares and functional mobility. Prognosis - Prognosis Good Plan - Plan Physical Therapy Plan: Pt. is to be seen 1-2x per day for physical therapy M-F until goal completion has been met for safe return to home environment. Occupational Therapy Plan: OT 2-4 times per week to address self cares, functional mobility, endurance and safety to allow return home.
--- NOTE | 2016-10-12 15:33 | Physical Therapy Tx Note ---
Physical Therapy Tx Note - Treatment Note Tolerated: Good Total Time Spent With Patient: 15 Physical Therapy Tx Note: Detail (The patient was up in chair and seen jointly with OT. The patient reports his back pain level is 5/6. The patient completed sit to and from stand transfer independently. The patient ambulated with 4 wheeled walker with seat a distance of 124 feet independently. The patient reports him only difficulty with function is bed mobility.) Physical Therapy Problem List: Detail (1) LE weakness 2) Balance impairment 3) Poor safety awareness 4) Dependence with bed mobility and transfer) Physical Therapy Goals: 1) Pt. will independently ambulate community distances with front wheeled walker without gait deviation or fall risk. 2) Pt. will independently ascend and descend 4 steps without gait deviation for safe return to home environment. 3) Pt. will present with good standing balance and not exhibit loss of midline positioning with light perturbation testing in all directions for improved balance. 4) Pt. will independently perform bed mobility and transfers with good understanding of precautions. 5) Pt. will be independent with HEP. Physical Therapy Plan: Pt. is to be seen 1-2x per day for physical therapy M-F until goal completion has been met for safe return to home environment.
[2016-10-12] MEDS: LEVEMIR FLEXTOUCH 100 UNIT/ML INSULIN PEN SQ SCH (22:09)
[2016-10-12] MEDS: SIMVASTATIN 20 MG TABLET PO SCH (22:14)
[2016-10-12] MEDS: AMLODIPINE BESYLATE 5MG TAB PO SCH (22:14)
[2016-10-13] MEDS: BUMETANIDE 1 MG TABLET PO SCH ×2 (06:27→14:47)
[2016-10-13] MEDS: METFORMIN 500 MG TABLET PO SCH ×2 (08:06→18:14)
--- NOTE | 2016-10-13 08:32 | Occupational Therapy Tx Note ---
Occupational Therapy Tx Note - Treatment Note Tolerated: Good Total Time Spent With Patient: 30 (ADL, gait) Occupational Therapy Treatment Note: Detail (S: Pt supine, ready to get up. O : Supine to sit with use of bed rails Indly although had mild difficulty. Sit to stand and amb to toilet with 4 wheeled walker Indly, toileted Indly. Amb back to EOB and donned pants Indly. Pt reports he does not want to attempt donning socks and shoes but verbalized how he would perform LE dressing. Sit to stand and amb to nurses station with 4 wheeled walker and SBA. Pt rested and amb back to room. Sit to supine Indly. A: Pt Ind with donning pants, toileting. Pt c/o right hip pain.) Occupational Therapy Problem List: Detail (1. Decreased Ind with showering and dressing activities. 2. Decreased endurance needed for self cares and functional mobility.) Occupational Therapy Goals: 1. Pt will be safe and Ind with total body dressing with use of adaptive equipment as needed. 2. Pt will be safe and Ind with showering in sitting. 3. Pt will demonstrate increased endurance needed for safe and Ind self cares and functional mobility. Prognosis: Good Occupational Therapy Plan: OT 2-4 times per week to address self cares, functional mobility, endurance and safety to allow return home.
[2016-10-13] MEDS: POTASSIUM CHLORIDE 10 MEQ TAB PO SCH (09:30)
[2016-10-13] MEDS: CHOLECALCIFEROL 1,000 UNIT TABLET PO SCH (09:30)
[2016-10-13] MEDS: ASCORBIC ACID 500 MG TAB PO SCH (09:30)
[2016-10-13] MEDS: ACETAMINOPHEN 500 MG TABLET PO PRN (14:47)
--- NOTE | 2016-10-13 15:01 | Physical Therapy Tx Note ---
Physical Therapy Tx Note - Treatment Note Tolerated: Good Total Time Spent With Patient: 30 Physical Therapy Tx Note: Detail (Patient states no new complaints. Patient transferred sit to and from stand independently x2. Patient ascended and descended 6 steps SBA x1. Patient performed the following exercises x10 reps each: seated marching, LAQ, seated hamstring curls with red theraband, seated hip abduction with red theraband, seated isometric hip adduction, and glut squeezes. Patient transferred sit to and from stand independently. Patient ambulated 10 feet with four wheeled walker independently. Patient tolerated treatment well. Patient reports fatigued after treatment. Patient was left seated in bathroom with pull cord within reach.) Physical Therapy Problem List: Detail (1) LE weakness 2) Balance impairment 3) Poor safety awareness 4) Dependence with bed mobility and transfer) Physical Therapy Goals: 1) Pt. will independently ambulate community distances with front wheeled walker without gait deviation or fall risk. 2) Pt. will independently ascend and descend 4 steps without gait deviation for safe return to home environment. 3) Pt. will present with good standing balance and not exhibit loss of midline positioning with light perturbation testing in all directions for improved balance. 4) Pt. will independently perform bed mobility and transfers with good understanding of precautions. 5) Pt. will be independent with HEP. Prognosis: Good Physical Therapy Plan: Pt. is to be seen 1-2x per day for physical therapy M-F until goal completion has been met for safe return to home environment.
[2016-10-13] MEDS: SIMVASTATIN 20 MG TABLET PO SCH (22:49)
[2016-10-13] MEDS: AMLODIPINE BESYLATE 5MG TAB PO SCH (22:49)
[2016-10-13] MEDS: LEVEMIR FLEXTOUCH 100 UNIT/ML INSULIN PEN SQ SCH (22:49)
[2016-10-14] MEDS: BUMETANIDE 1 MG TABLET PO SCH ×2 (06:36→14:43)
[2016-10-14] MEDS: METFORMIN 500 MG TABLET PO SCH ×2 (08:51→17:40)
[2016-10-14] MEDS: POTASSIUM CHLORIDE 10 MEQ TAB PO SCH (10:34)
[2016-10-14] MEDS: CHOLECALCIFEROL 1,000 UNIT TABLET PO SCH (10:34)
[2016-10-14] MEDS: ASCORBIC ACID 500 MG TAB PO SCH (10:34)
--- NOTE | 2016-10-14 11:45 | Physical Therapy Tx Note ---
Physical Therapy Tx Note - Treatment Note Tolerated: Good Total Time Spent With Patient: 35 Physical Therapy Tx Note: Detail (Patient states right low back sore today. Patient transferred sit to and from stand independently. Patient ambulated 235 feet x2 with four wheeled walker SBA x1. Patient performed the following exercises x10 reps each: seated heel raises, seated toe raises, seated marching , seated hamstring curls with red theraband, LAQ, seated hip abduction with red theraband, and isometric hip adduction. Patient transferred sit to and from stand independently. Patient tolerated treatment well. Patient complains of pain in right LE after exercises. Patient was left seated in chair with call light within reach.) Physical Therapy Problem List: Detail (1) LE weakness 2) Balance impairment 3) Poor safety awareness 4) Dependence with bed mobility and transfer) Physical Therapy Goals: 1) Pt. will independently ambulate community distances with front wheeled walker without gait deviation or fall risk. 2) Pt. will independently ascend and descend 4 steps without gait deviation for safe return to home environment. 3) Pt. will present with good standing balance and not exhibit loss of midline positioning with light perturbation testing in all directions for improved balance. 4) Pt. will independently perform bed mobility and transfers with good understanding of precautions. 5) Pt. will be independent with HEP. Prognosis: Good Physical Therapy Plan: Pt. is to be seen 1-2x per day for physical therapy M-F until goal completion has been met for safe return to home environment.
--- NOTE | 2016-10-14 15:42 | Physical Therapy Tx Note ---
Physical Therapy Tx Note - Treatment Note Tolerated: Good Total Time Spent With Patient: 35 Physical Therapy Tx Note: Detail (Patient states right low back sore. Patient transferred sit to and from stand independently. Patient ambulated 347.5 feet, 176.5 feet, 104 feet, and 72 feet with four wheeled walker SBA x1. Patient transferred sit to and from stand independently. Patient performed the following exercises x10 reps each: seated marching, LAQ, standing heel raises, and standing toe raises. Patient tolerated treatment well. Patient required seated rest breaks with ambulation and exercises due to shortness of breath. Patient was left seated in chair with call light within reach.) Physical Therapy Problem List: Detail (1) LE weakness 2) Balance impairment 3) Poor safety awareness 4) Dependence with bed mobility and transfer) Physical Therapy Goals: 1) Pt. will independently ambulate community distances with front wheeled walker without gait deviation or fall risk. 2) Pt. will independently ascend and descend 4 steps without gait deviation for safe return to home environment. 3) Pt. will present with good standing balance and not exhibit loss of midline positioning with light perturbation testing in all directions for improved balance. 4) Pt. will independently perform bed mobility and transfers with good understanding of precautions. 5) Pt. will be independent with HEP. Prognosis: Good Physical Therapy Plan: Pt. is to be seen 1-2x per day for physical therapy M-F until goal completion has been met for safe return to home environment.
[2016-10-14] MEDS: AMLODIPINE BESYLATE 5MG TAB PO SCH (22:07)
[2016-10-14] MEDS: SIMVASTATIN 20 MG TABLET PO SCH (22:07)
[2016-10-14] MEDS: LEVEMIR FLEXTOUCH 100 UNIT/ML INSULIN PEN SQ SCH (22:08)
[2016-10-15] MEDS: BUMETANIDE 1 MG TABLET PO SCH (06:44)
--- NOTE | 2016-10-15 07:44 | Discharge Summary ---
Providers Discharge Summary Date: 10/15/16 Date of admission: 10/08/16 17:22 Expected Date of Discharge: 10/15/16 Attending physician: ORALIA GONZALEZ Primary care physician: ORALIA GONZALEZ Physical Exam - Vital Signs Vital Signs: Vital Signs - Last 24 Hrs Temp Pulse Pulse Resp BP Pulse Ox 10/14/16 10:00 97.7 F 81 16 128/62 96 10/14/16 09:11 79 17 94 L - General General Appearance: Alert, Oriented x3, Cooperative, No acute distress - Head Head exam: Atraumatic, Normocephalic - Eye Eye exam: Normal appearance, PERRL - ENT ENT exam: Normal exam, Mucous membranes moist, Normal external ear exam, Normal orophraynx - Neck Neck exam: Normal inspection, Full ROM - Respiratory Respiratory exam: Normal lung sounds bilaterally. negative: Accessory muscle use, Decreased breath sounds, Rales - Cardiovascular Cardiovascular Exam: Regular rate, Normal heart sounds, Irregular rhythm - GI/Abdominal GI/Abdominal exam: Soft, Normal bowel sounds. negative: Distended - Rectal Rectal exam: Deferred - exam: Deferred - Extremities Extremities exam: Normal inspection - Back Back exam: Reports: Normal inspection, Tenderness (along incision) - Neurological Neurological exam: Abnormal gait (walks with walker), Alert, Oriented X3 Hospitalization - Hospitalization Admission Diagnosis: deconditioning from laminectomy - Problem List (1) Weakness Current Visit: Yes Status: Acute Base Code: R53.1 - WEAKNESS Comment: - improved. patient worked with PT/OT to improve strength and physical functioning. Doing very well and will discharge home -will plan to follow up with him in the clinic in 1-2 weeks (2) History of laminectomy Current Visit: Yes Status: Acute Base Code: Z98.890 - OTHER SPECIFIED POSTPROCEDURAL STATES Comment: 10/15/16- Patient had post-op visit today with nursing. had luis removed. Is healing well and will follow up with neurosurgery on 10/25/16. (3) Diabetes mellitus type 2, insulin dependent Current Visit: No Status: Acute Base Code: E11.9 - TYPE 2 DIABETES MELLITUS WITHOUT COMPLICATIONS; Z79.4 - SHADE HANGER (CURRENT) USE OF INSULIN Comment: 10/15- Blood glucose very well controlled while in [facility] likely 2/2 diet compliance while here. -spent 10 minutes counseling on continued adherance to diet. given handouts on diabetes diet -continue metformin, lantus 26 units and bydureon as prescribed -He will follow up with me in clinic in 1-2 weeks (4) DNR (do not resuscitate) Current Visit: No Status: Acute Base Code: Z66 - DO NOT RESUSCITATE Comment: 10/15/16: Patient remained DNR while hospitalized (5) DVT prophylaxis Current Visit: Yes Status: Acute Base Code: [id number] - Comment: 10/15/16- on xaralto for a. fib - Hospitalization Course Disposition: Home Health Service Hospital Course: 76 yo m admitted to subacute rehab for weakness s/p bilateral L2-L4 laminectomy for stenosis. He has had intermittent lower back pain since fall in 1971 with decreased bladder control. He had been using a 4 wheeled walker for assistance with ambulation at baseline prior to surgery. Past medical history of HTN, atrial fibrillation, elevated cholesterol, chronic bilateral lower extremity neuropathy, nephrolithiasis, insulin dependent diabetes mellitus type 2, gout, arthritis, testicular cancer diagnosed 7years ago and treated with chemotherapy and radiation, GUSTBAO, CHF, obesity and venous insufficiency. Patient is on xaralto for a. fib. 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 10/15/16- patient has done well with PT/OT. he is independent with ambulation with his walker. He went to [facility] today for surgery follow up and did very well. was able to ambulate with walker and get in/out of vehicle. says his pain has been very well controlled. has not been taking any of his pain medications. He is feeling ready to go home PCP: Dr. Denson Surgeon: John Abnormal Labs: Abnormal Lab Results 10/08/16 10/09/16 10/09/16 Range/Units 21:30 07:09 17:30 POC Glucose 151 H 144 H 123 H (70-110) mg/dL 10/09/16 10/10/16 10/10/16 Range/Units 21:40 06:44 22:00 POC Glucose 195 H 117 H 135 H (70-110) mg/dL 10/11/16 10/12/1610/13/17 Range/Units 21:20 06:14 22:41 POC Glucose 145 H 119 H 132 H (70-110) mg/dL 10/14/16 10/14/16 10/14/16 Range/Units 07:30 17:39 22:00 POC Glucose 115 H 125 H 167 H (70-110) mg/dL Condition at Discharge: (2) Stable Discharge Medications - Discharge Medications Home Medications: Ambulatory Orders Ascorbic Acid [Vitamin C] 1,000 mg PO DAILY 09/02/15 [Last Taken 01/25/16] Cholecalciferol (Vitamin D3) [Vitamin D3] 1,000 unit PO DAILY 09/02/15 [Last Taken 01/25/16] Discharge Plan - Discharge Instructions Instructions: Meal Planning with Diabetes Exchanges (DC) Additional Instructions: Post-op Dr. Lopez 11/03 at 1230 PM Follow up with [facility] Family practice in 1-2 weeks. Yuly our post acute care registered nurse will be contacting you to schedule
[2016-10-15] MEDS: CHOLECALCIFEROL 1,000 UNIT TABLET PO SCH (12:53)
[2016-10-15] MEDS: METFORMIN 500 MG TABLET PO SCH (12:53)
[2016-10-15] MEDS: POTASSIUM CHLORIDE 10 MEQ TAB PO SCH (12:53)
[2016-10-15] MEDS: ASCORBIC ACID 500 MG TAB PO SCH (12:53)
--- NOTE | 2016-10-15 13:26 | Rehab Discharge Summary ---
Patient Information - Patient Information Diagnosis: Lumbar Laminectomy Ordered Treatment: OT Evaluate and Treat Surgery: Yes (B lumbar laminectomy L2-4) Date of Surgery: 10/04/16 History: Detail (Pt. reports history of chronic LBP that has become more intense over the years prior to surgical date for laminectomy. Pt. reports no trauma to thoracic/cervical spine.) Past Med/Alan Hx Detail: Detail (Pt. has PMH significant for: HTN, atrial fibrillation, B LE neuropathy, type II diabetes, CHF, venous insufficiency. Please see additional intake forms for complete PMH. Pt. does report his "phrenic nerve suddenly stopped working" and he has had difficulty breathing since.) Past Medical/Surgical Hx: PAST MEDICAL/SURGICAL HISTORY Past Surgical History cystoscopy Jean Paul Big toes for calcium build up right shoulder replacement Appy temporal artery biopsy cateracts removal L wrist for fracture repair and plate muscle biopsy from arm Testicle removed d/t CA kidney stone removal orchiectomy laminectomy PMH - Respiratory Hx Respiratory Disorders Yes Hx Sleep Apnea Yes: c-plex Hx of CPAP Yes Comment: Phrenic nerve problem; 50% lung volume. 3L home O2. PMH - Cardiovascular Hx Cardiovascular Disorders Yes Hx Congestive Heart Failure Yes Hx Hypertension Yes Hx Irregular Heartbeat Yes: A-fib Comment: High cholesterol PMH - Neuro Hx Neurological Disorders Yes Hx Neuropathy Yes: Jean Paul. Lower extremities Hx Seizures No PMH - GI Hx Gastrointestinal Disorders Yes Hx Rectal Bleeding Yes PMH - Hx Genitourinary Disorders Yes Hx Bladder Problem Yes: urge incontinence Hx Kidney Stones Yes Hx Urinary Tract Infection Yes PMH - Endocrine Hx Endocrine Disorders No Hx Diabetes Yes Hx Thyroid Disease No PMH - Musculoskeletal Hx Musculoskeletal Disorders Yes Hx Arthritis Yes Hx Back Injury Yes Hx Gout Yes PMH - Psych Hx Psychiatric Problems No PMH - Hematology/Oncology Hx Hematology/Oncology Yes Disorders Hx Cancer Yes: Testicular lymphoma, basal cell skin Hx Chemotherapy Yes Hx Radiation Therapy Yes Premorbid Status: Detail (Pt. reports slowly worsening of LBP.) Social History: Detail (Pt. lives alone in a trailer with 4 steps leading into the home and hand rails on both sides. Pt. has grab bars installed in the bathroom. 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 Pt. has a four wheeled walker and is expecting a new one. Pt. reports that his right break does not work on the current walker that he has. Pt. reports that his mattress at home needs to be replaced and that he has difficulty sleeping.) Precautions: [place] (Pt. has the following restrictions regarding his low back: no bending, lifting, twisting.), Fall, Other Objective Data - Pain Pain Present: Yes - Mental Status Patient Orientation: Oriented x3 - Visual Perception Appears within normal limits for therapeutic activities - ROM Within normal limits (Jean Paul UE AROM WNL) - Strength/Tone Within normal limits (Jean Paul UE MMT 4+/5) - Coordination Appears within normal limits for therapeutic activities - Bed Mobility Independent - Transfers Independent - Balance Balance Sitting: Good Balance Standing: Good - Sensation Intact - Gait Detail (Amb with 2 wheeled walker household distances) - ADL's/IADL's Detail (Ind with LE dressing, pt reports Ind with all self care activities.) Therapy Assessment - Therapy Assessment Detail (Pt reports Ind with all self cares and toileting.) Problem List - Problem List Physical Therapy Problem List: Detail (1) LE weakness 2) Balance impairment 3) Poor safety awareness 4) Dependence with bed mobility and transfer) Occupational Therapy Problem List: Detail (1. Decreased Ind with showering and dressing activities. 2. Decreased endurance needed for self cares and functional mobility.) Goals - Goals Physical Therapy Goals: 1) Pt. will independently ambulate community distances with front wheeled walker without gait deviation or fall risk. 2) Pt. will independently ascend and descend 4 steps without gait deviation for safe return to home environment. 3) Pt. will present with good standing balance and not exhibit loss of midline positioning with light perturbation testing in all directions for improved balance. 4) Pt. will independently perform bed mobility and transfers with good understanding of precautions. 5) Pt. will be independent with HEP. Occupational Therapy Goals: Goals Met: 1. Pt will be safe and Ind with total body dressing with use of adaptive equipment as needed. 3. Pt will demonstrate increased endurance needed for safe and Ind self cares and functional mobility. Goals Not Met/not formally assessed:2. Pt will be safe and Ind with showering in sitting. Prognosis - Prognosis Good Plan - Plan Physical Therapy Plan: Pt. is to be seen 1-2x per day for physical therapy M-F until goal completion has been met for safe return to home environment. Occupational Therapy Plan: Pt is discharging home.
--- NOTE | 2016-10-15 14:05 | Rehab Discharge Summary ---
Patient Information - Patient Information Diagnosis: Lumbar Laminectomy Ordered Treatment: PT Evaluate and Treat Surgery: Yes (B lumbar laminectomy L2-4) Date of Surgery: 10/04/16 History: Detail (Pt. reports history of chronic LBP that has become more intense over the years prior to surgical date for laminectomy. Pt. reports no trauma to thoracic/cervical spine.) Past Med/Alan Hx Detail: Detail (Pt. has PMH significant for: HTN, atrial fibrillation, B LE neuropathy, type II diabetes, CHF, venous insufficiency. Please see additional intake forms for complete PMH. Pt. does report his "phrenic nerve suddenly stopped working" and he has had difficulty breathing since.) Past Medical/Surgical Hx: PAST MEDICAL/SURGICAL HISTORY Past Surgical History cystoscopy Jean Paul Big toes for calcium build up right shoulder replacement Appy temporal artery biopsy cateracts removal L wrist for fracture repair and plate muscle biopsy from arm Testicle removed d/t CA kidney stone removal orchiectomy laminectomy PMH - Respiratory Hx Respiratory Disorders Yes Hx Sleep Apnea Yes: c-plex Hx of CPAP Yes Comment: Phrenic nerve problem; 50% lung volume. 3L home O2. PMH - Cardiovascular Hx Cardiovascular Disorders Yes Hx Congestive Heart Failure Yes Hx Hypertension Yes Hx Irregular Heartbeat Yes: A-fib Comment: High cholesterol PMH - Neuro Hx Neurological Disorders Yes Hx Neuropathy Yes: Jean Paul. Lower extremities Hx Seizures No PMH - GI Hx Gastrointestinal Disorders Yes Hx Rectal Bleeding Yes PMH - Hx Genitourinary Disorders Yes Hx Bladder Problem Yes: urge incontinence Hx Kidney Stones Yes Hx Urinary Tract Infection Yes PMH - Endocrine Hx Endocrine Disorders No Hx Diabetes Yes Hx Thyroid Disease No PMH - Musculoskeletal Hx Musculoskeletal Disorders Yes Hx Arthritis Yes Hx Back Injury Yes Hx Gout Yes PMH - Psych Hx Psychiatric Problems No PMH - Hematology/Oncology Hx Hematology/Oncology Yes Disorders Hx Cancer Yes: Testicular lymphoma, basal cell skin Hx Chemotherapy Yes Hx Radiation Therapy Yes Premorbid Status: Detail (Pt. reports slowly worsening of LBP.) Social History: Detail (Pt. lives alone in a trailer with 4 steps leading into the home and hand rails on both sides. Pt. has grab bars installed in the bathroom. 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 Pt. has a four wheeled walker and is expecting a new one. Pt. reports that his right break does not work on the current walker that he has. Pt. reports that his mattress at home needs to be replaced and that he has difficulty sleeping.) Precautions: [place] (Pt. has the following restrictions regarding his low back: no bending, lifting, twisting.), Fall, Other - Time With Patient Total Time Spent With Patient (Min): 15 Treatment Procedures: Detail (Re-evaluation) Subjective Information - Subjective Information Per Patient (The patient had no complaints of pain. The patient had returned for Dr. austin in which his luis were removed.) Objective Data - Mental Status Patient Orientation: Oriented x3 - ROM Other (Lumbar ROM was not tested secondary to post surgical precautions, LE ROM was WNL.) - Strength/Tone Within normal limits (The patient's LE strength was generally 4+to 5/5 except L hip flexors and extensors and hamstrings 4/5.) - Bed Mobility Independent (The patient was independent with supine to and from sit ,scooting and rolling.) - Transfers Independent (The patient was independent with sit to and from stand transfer, car transfer and toilet transfer.) - Balance Balance Sitting: Good Balance Standing: Good - Gait Detail (The patient ambulates independently with 4 wheeled walker a distance of 150 feet plus. The patient ambulated independently on stairs with 2 railings using reciprocal gait pattern.) Therapy Assessment - Therapy Assessment Detail (The patient was independent with all mobility and ambulation. The patient exhibited improved LE strength. The patient declined home or outpatient therapy. Feel the patient will continue to improve with completion of HEP.) Patient Education - Patient Education Teaching Topic: Exercise/Activity (LE strengthening exercises.), Precautions ( Back precautions and proper body mechanices for back protection.) Response: Return Demonstration Teaching Method: Handout Teaching Recipient: Patient Barriers To Learning: None Problem List - Problem List Physical Therapy Problem List: Detail (1) LE weakness 2) Balance impairment 3) Poor safety awareness 4) Dependence with bed mobility and transfer) Occupational Therapy Problem List: Detail (1. Decreased Ind with showering and dressing activities. 2. Decreased endurance needed for self cares and functional mobility.) Goals - Goals Physical Therapy Goals: GOALS MET: 1) Pt. will independently ambulate community distances with front wheeled walker without gait deviation or fall risk. 2) Pt. will independently ascend and descend 4 steps without gait deviation for safe return to home environment. 3) Pt. will present with good standing balance and not exhibit loss of midline positioning with light perturbation testing in all directions for improved balance. 4) Pt. will independently perform bed mobility and transfers with good understanding of precautions. 5) Pt. will be independent with HEP. Occupational Therapy Goals: Goals Met: 1. Pt will be safe and Ind with total body dressing with use of adaptive equipment as needed. 3. Pt will demonstrate increased endurance needed for safe and Ind self cares and functional mobility. Goals Not Met/not formally assessed:2. Pt will be safe and Ind with showering in sitting. Plan - Plan Physical Therapy Plan: The patient is discharging to home. Occupational Therapy Plan: Pt is discharging home.
== END 2016-10-15 15:36 | disposition home health service (06) | DRG 948 ==
LOC: MEDSURG 17:22
PROVIDERS: ADMIT Family Medicine; ATTEND Family Medicine
DX: R53.1 Weakness (principal); E11.9 Type 2 diabetes mellitus without complications; Z79.4 Long term (current) use of insulin; Z98.890 Other specified postprocedural states; Z66 Do not resuscitate
CPT/HCPCS: 36416; 82948; 94761; 97110; 97116; 97165; 97530; 97535; 99306; 99316

== ENCOUNTER 2017-04-18 06:50 | Observation (INO) | payer MEDICARE, BC ==
--- NOTE | 2017-04-18 07:10 | Emergency Department Record ---
History of Present Illness - General Chief Complaint: Dizziness Stated Complaint: DIZZINESS Time Seen by Provider: 04/18/17 07:07 Source: Patient Mode of Arrival: EMS Limitations: No limitations - History of Present Illness Initial Comments: The patient is here due to developing lightheadedness for about 2 hours prior to presenting to the ER. He denies any JOY, CP, SOB, JÚNIOR, or any arm or leg numbness or weakness. He states he was up most of the night reading and then went into the bathroom at 4am and felt very weak and lightheaded. The onset was gradual. There was no reported fall, injury, head trauma, visual changes or trouble with his speech. The patient is on blood thinners for Afib. MD Complaint: Lightheadedness Onset/Timin -: Hour(s) Timing: Gradual onset Description: Difficulty walking, Lightheadedness, Nausea, Near-syncope Associated Symptoms: Other - Related Data Allergies Allergy/AdvReac Type Severity Reaction Status Date / Time aspirin Allergy HIVES Verified 04/18/17 06:53 Penicillins Allergy PT UNSURE Verified 04/18/17 06:53 OF REACTION Sulfa (Sulfonamide Allergy RASH Verified 04/18/17 06:53 Antibiotics) lactose AdvReac Intermediate NAUSEA AND Verified 04/18/17 06:53 VOMITING Travel Screening - Travel/Exposure Within Last 30 Days Have you traveled within the last 30 days?: No - Travel Symptoms Symptom Screening: None Review of Systems Constitutional: Denies: Chills, Fever Eyes: Denies: Eye discharge ENT: Denies: Congestion Respiratory: Denies: Cough, Dyspnea Past Medical History - SOCIAL HISTORY Smoking Status: Never smoker - RESPIRATORY Hx Respiratory Disorders: Yes Hx Sleep Apnea: Yes (c-plex) Comment:: Phrenic nerve problem; 50% lung volume. 3L home O2. - CARDIOVASCULAR Hx Cardio Disorders: Yes Hx CHF: Yes Hx Hypertension: Yes Hx Irregular Heartbeat: Yes (A-fib) Comment:: High cholesterol - NEURO Hx Neuro Disorders: Yes Hx Seizures: No - GI Hx GI Disorders: Yes Hx Rectal Bleeding: Yes - Hx Genitourinary Disorders: Yes Hx Bladder Problem: Yes (urge incontinence) Hx Kidney Stones: Yes Hx UTI: Yes - ENDOCRINE Hx Endocrine Disorders: No Hx Diabetes: Yes - MUSCULOSKELETAL Hx Musculoskeletal Disorders: Yes Hx Arthritis: Yes Hx Back Injury: Yes Hx Gout: Yes - PSYCH Hx Psych Problems: No - HEMATOLOGY/ONCOLOGY Hx Hematology/Oncology Disorders: Yes Hx Cancer: Yes (Testicular lymphoma, basal cell skin) Hx Chemotherapy: Yes Hx Radiation Therapy: Yes Family Medical History Any Significant Family History?: Yes Hx Cancer: Mother, Brother/Sister Hx Diabetes: Father, Brother/Sister Hx Heart Disease: Father Physical Exam - General General Appearance: Alert, Oriented x3, Cooperative, No acute distress - Head Head exam: Atraumatic, Normocephalic, Normal inspection - Eye Eye exam: Normal appearance, PERRL, EOMI. negative: Nystagmus - ENT Throat exam: Normal inspection. negative: Tonsillar erythema, Tonsillar exudate - Neck Neck exam: Normal inspection, Full ROM. negative: Tenderness - Respiratory Respiratory exam: Normal lung sounds bilaterally. negative: Respiratory distress - Cardiovascular Cardiovascular Exam: Regular rate, Normal heart sounds, Irregular rhythm. negative: Normal rhythm - GI/Abdominal GI/Abdominal exam: Soft, Normal bowel sounds. negative: Tenderness - Extremities Extremities exam: Pedal edema (chronic.). negative: Normal inspection - Neurological Neurological exam: Alert, Oriented X3. negative: Altered, Motor sensory deficit Course Vital Signs 04/18/17 04/18/17 06:55 07:03 Temperature 97.6 F Pulse Rate [ 74 Pulse Ox Probe] Respiratory 20 Rate Blood Pressure 134/61 Blood Pressure 134/61 [Left Arm] Pulse Ox 96 - Reevaluation(s) Reevaluation #1: The patient is feeling better. He is resting comfortably with normal vital signs. He still feels a bit unsteady and lightheaded. 04/18/17 08:30 Reevaluation #2: The patient is doing very well at this time. I am concerned about the patient possibly having suffered a small stroke due to his lightheadedness. He is still having difficulty walking but no focal deficits. Due to that fact I do feel the patient needs to be observed in the hospital. I did discuss this with the patient and he does agree tot he plan. I also did discuss this with the patient PCP Lurdes (DANA) and she does accept the patient to the hospital for Dr. Kearney. 04/18/17 09:22 Medical Decision Making - Data Complexity MDM Data: Labs Ordered and/or Reviewed, X-Ray Ordered and/or Reviewed, EKG Ordered and/or Reviewed - Lab Data Result diagrams: 04/18/17 07:23 04/18/17 07:23 - EKG Data -: EKG Interpreted by Me EKG: No Acute Changes, Unchanged From Previous - Radiology Data Radiology results: Report reviewed (Head CT: No acute changes.) Disposition Disposition: Admit Clinical Impression: Weakness Disposition: Still a Patient at [facility] Decision to Admit: Admit from ER Decision to Admit Date: 04/18/17 Decision to Admit Time: 09:25 Accepting Physician: Christel Time Discussed w/Accepting Physician: 09:25 Condition: (2) Stable Time of Disposition: :25 Quality - Quality Measures Quality Measures: N/A - Blood Pressure Screening View Details: Yes Does Patient Have Any of the Following: Active Dx of HTN Blood Pressure Classification: Pre-Hypertensive BP Reading Systolic Measurement: 116 Diastolic Measurement: 87 Screening for High Blood Pressure: Patient Exclusion, Hx of HTN [[id number]]
[2017-04-18] MEDS ORDERED: 0.9 % SODIUM CHLORIDE 1,000 ML BAG IV ONE (07:38)
[2017-04-18 07:45] LABS: BASO % 0.3 % (0-6); EOS % 2.3 % (0-6); GRAN % 79.2 % (47-80); HEMATOCRIT 40.9 % (42.0-52.0); HEMOGLOBIN 12.8 gm/dl (14.0-18.0); LYMPH % 10.9 % (16-45); MEAN CORPUSCULAR HGB CONC 31.3 g/dl (32-36); MEAN PLATELET VOLUME 11.5 fl (7.4-10.4); MONO % 7.3 % (0-9); PLATELET COUNT 270 K/uL (130-400); RED BLOOD COUNT 4.99 M/uL (4.40-5.70); RED CELL DISTRIBUTION WIDTH 16.5 % (11.5-14.5); WHITE BLOOD COUNT W/O DIFF 7.8 K/uL (4.2-12.2)
[2017-04-18 07:48] LABS: MEAN CORPUSCULAR HEMOGLOBIN 25.6 pg (27-33)
[2017-04-18 07:55] LABS: INR 1.03; PROTHROMBIN TIME (PATIENT) 11.1 SECONDS (9.5-12.1)
[2017-04-18 07:57] LABS: BLOOD UREA NITROGEN 39 mg/dL (8-23); CREATININE 1.7 mg/dL (0.7-1.2); EST GLOMERULAR FILTRATION RATE 42 mL/min
[2017-04-18 08:00] LABS: GLUCOSE,RANDOM 198 mg/dL (74-109)
[2017-04-18 08:03] LABS: CREATINE PHOSPHOKINASE 87 U/L (39-308)
[2017-04-18 08:06] LABS: CKMB 2.4 ng/mL (<6.73)
[2017-04-18 08:13] LABS: THYROID STIMULATING HORMONE 5.33 uIU/mL (0.270-4.20)
[2017-04-18] MEDS ORDERED: ALCOHOL ANTISEPTIC PADS TP SCH (10:14)
[2017-04-18] MEDS ORDERED: ACETAMINOPHEN 500 MG TABLET PO PRN (10:14)
--- NOTE | 2017-04-18 10:31 | CT SCAN REPORT ---
EXAM: HEAD CT WITHOUT CONTRAST HISTORY: ACUTE DIZZINESS. TECHNIQUE: Head CT without contrast was obtained. Comparison: None. Encounter: Initial. Hand dominance: Left. FINDINGS: Mild generalized atrophy of the brain. Focal encephalomalacia involving the right frontal cortex consistent with remote infarct. No acute intracranial hemorrhage, mass effect, or midline shift. Mild to moderate decreased attenuation in the periventricular white matter of the cerebral hemispheres consistent with chronic ischemic change. No CT evidence of acute infarct. The ventricles, basal cisterns and sulci are within normal limits. Bilateral lens implants. The osseous structures are unremarkable. Moderate mucosal thickening right maxillary sinus. IMPRESSION: 1. NO ACUTE INTRACRANIAL PROCESS. 2. MILD TO MODERATE CHRONIC SMALL VESSEL ISCHEMIC CHANGE WITH REMOTE RIGHT FRONTAL CORTICAL INFARCT. 3. CHRONIC RIGHT MAXILLARY SINUSITIS. JOB NUMBER: [id number] MTDD
[2017-04-18] MEDS: POTASSIUM CHLORIDE 10 MEQ TAB PO SCH (11:50)
[2017-04-18] MEDS: AMLODIPINE BESYLATE 5MG TAB PO SCH (11:50)
[2017-04-18] MEDS: ALLOPURINOL 100 MG TAB PO SCH (11:50)
[2017-04-18] MEDS: METFORMIN 500 MG TABLET PO SCH ×2 (11:50→22:44)
[2017-04-18] MEDS: RIVAROXABAN 20 MG TABLET PO SCH (11:50)
[2017-04-18] MEDS: BUMETANIDE 1 MG TABLET PO SCH ×2 (11:50→22:43)
[2017-04-18 12:39] LABS: URINE APPEARANCE CLEAR; URINE BILIRUBIN NEGATIVE (NEGATIVE); URINE BLOOD TRACE-I (NEGATIVE); URINE COLOR YELLOW; URINE GLUCOSE (UA) NEGATIVE (NEGATIVE); URINE KETONE NEGATIVE (NEGATIVE); URINE LEUKOCYTE ESTERASE NEGATIVE (NEGATIVE); URINE NITRITE NEGATIVE (NEGATIVE); URINE UROBILINOGEN 0.2 E.U./dL (0.20 - 1.00)
[2017-04-18 12:50] LABS: URINE RBC 0 - 2 (NONE SEEN); URINE SQUAMOUS EPITHELIAL CELL 0 - 2 /hpf; URINE WBC 0 - 2 (0-2/hpf)
[2017-04-18 12:51] LABS: URINE BACTERIA NONE SEEN; URINE HYALINE CAST 0 - 2 /lpf
[2017-04-18] MEDS ORDERED: ONDANSETRON HCL IV 4 MG/2 ML VIAL IVP PRN (14:17)
[2017-04-18] MEDS: VESICARE 10 MG PO SCH (16:47)
[2017-04-18] MEDS ORDERED: LEVEMIR FLEXTOUCH 100 UNIT/ML INSULIN PEN SQ SCH (22:00)
[2017-04-18] MEDS ORDERED: SIMVASTATIN 20 MG TABLET PO SCH (22:00)
[2017-04-18] MEDS: ACETAMINOPHEN 500 MG TABLET PO PRN (22:45)
[2017-04-19 06:33] LABS: BASO % 0.2 % (0-6); EOS % 6.2 % (0-6); GRAN % 58.5 % (47-80); HEMATOCRIT 39.5 % (42.0-52.0); LYMPH % 27.5 % (16-45); MEAN CELL VOLUME 83.5 fl (81-97); MEAN CORPUSCULAR HEMOGLOBIN 25.3 pg (27-33); MEAN CORPUSCULAR HGB CONC 30.4 g/dl (32-36); MEAN PLATELET VOLUME 10.7 fl (7.4-10.4); MONO % 7.6 % (0-9); PLATELET COUNT 251 K/uL (130-400); RED BLOOD COUNT 4.73 M/uL (4.40-5.70); RED CELL DISTRIBUTION WIDTH 16.6 % (11.5-14.5)
--- NOTE | 2017-04-19 06:35 | Discharge Note ---
VTE H&P Assessment - Risk for VTE Risk for VTE: Yes Risk Level: Low Risk Assessment Date: 04/18/17 Risk Assessment Time: 14:00 VTE Orders Placed or Will Be Placed: Yes Discharge Medications - Discharge Medications Home Medications: Ambulatory Orders Ascorbic Acid [Vitamin C] 1,000 mg PO DAILY 09/02/15 [Last Taken 04/17/17] Cholecalciferol (Vitamin D3) [Vitamin D3] 1,000 unit PO DAILY 09/02/15 [Last Taken 04/17/17] Discharge Note - Date Date of Discharge Note: 04/19/17 Disposition: Home, Self-Care Condition: (2) Stable Instructions: Dizziness (ED) Additional Instructions: follow up with Lurdes Castillo. continue home meds Forms: Patient Portal Access Activity at Discharge: Increase Activity as Tolerated Diet at Discharge: Low Salt Diet
[2017-04-19 06:37] LABS: ALB/GLOB RATIO 1.2 (1.1-1.8); ALBUMIN 3.7 g/dL (4.0-5.0); BILIRUBIN,TOTAL 1.2 mg/dL (0.2-1.0); CREATININE 1.5 mg/dL (0.7-1.2); TOTAL PROTEIN 6.7 g/dL (6.6-8.7)
--- NOTE | 2017-04-19 07:11 | History and Physical Report ---
DATE OF ADMISSION: 04/18/2017 at 1:24 p.m. CHIEF COMPLAINT: Dizziness, vomiting. HISTORY OF PRESENT ILLNESS: This 77-year-old male was at home, he was up all night reading a book, he got sweaty and lightheaded. He called EMS. He vomited bile at home. No diarrhea. He vomited once in the hospital room here. He was evaluated by Dr. Hathaway, evaluated to the hospital with a diagnosis of dizziness. He denies chest pain or dyspnea. He does use home oxygen at night with his CPAP machine but he does not use it during the day. He also was admitted, actually, with a diagnosis of weakness. The patient denies diarrhea. He said he was lightheaded for about 2 hours prior to coming to the ER. No headache, chest pain, shortness of breath. Denies any dyspnea. He is very overweight. He does not have any arm or leg numbness or weakness. However, when he goes to get up, he feels weak. The patient is on blood thinners for atrial fib. PAST MEDICAL HISTORY: Atrial fib. His store keeper is Dr. Neff. 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 Hypertension. Diabetes on insulin. Incontinence of urine. He was placed on Vesicare but that caused him to have retention of fluid in his legs. He also stopped using his Bumex for a period of time. He uses 3L/min nasal oxygen at home. PAST SURGICAL HISTORY: Cystoscopy, bilateral big toe surgery, right shoulder replacement, appendectomy, temporal artery biopsy. MEDICATIONS: 1. He was on Vesicare but that has been stopped because it caused pedal edema. 2. Simvastatin 20 mg at bedtime. 3. Xarelto 20 mg daily. 4. Potassium chloride 10 mEq daily. 5. Metformin 850 b.i.d. 6. Lantus 26 units at night. 7. Exenatide microspheres 2 mg every 7 days. 8. Vitamin D3, 1000 units daily. 9. Bumex 1 mg b.i.d. 10. Vitamin C 1000 mg daily. 11. Amlodipine 5 mg daily. 12. Zyloprim 300 mg daily. 13. CPAP mask. ALLERGIES: ASPIRIN, PENICILLIN, SULFA, LACTOSE. SOCIAL HISTORY: Unremarkable. Never smoked cigarettes. No history of alcohol use. FAMILY HISTORY: Mother, brother, sister had cancer. Father has diabetes. Brother and sister have diabetes. Father has heart disease. REVIEW OF SYSTEMS: HEENT: No upper respiratory infection symptoms, cough, cold, or congestion. Cardiovascular: No chest pain, palpitations, or arrhythmia. Respiratory: No shortness of breath, cough, cold, or congestion but he has oxygen on at 3L/min nasal cannula. He uses CPAP at night. Gastrointestinal: See Chief Complaint. He vomited twice at home, once here in our hospital room, bile. No diarrhea. No abdominal pain. He does feel nauseated before vomiting and then feels better. Genitourinary: No dysuria, hematuria, frequency, or burning on urination. Musculoskeletal: He does have arthritis in all joints. Neurological: No CVA, paralysis, or paresthesias. No signs of a stroke at this time. Endocrine: He has diabetes mellitus. No hypothyroidism. Integument: No rash, ulcers, change in moles, or yellow skin. PHYSICAL EXAMINATION: VITALS: Height 6 feet 4 inches, weight 370 pounds. Temperature 97.8, pulse 88, blood pressure 149/80, respiratory rate 14, pulse ox 99% on 2L. HEENT: Pupils are equal, round, and reactive to light and accommodation. Extraocular muscles are intact. Throat is clear. Nose is clear. Tympanic membranes are peter. He has a white carroll. NECK: Supple. No jugular venous distention. No hepatojugular reflux. No carotid bruits. Thyroid is smooth. CARDIOVASCULAR: Irregular rate and rhythm. No clicks, rubs, or gallops. RESPIRATORY: Clear to auscultation. Breath sounds equal bilaterally. ABDOMEN: Soft, obese, nontender. No hepatosplenomegaly, no masses, no tenderness. Bowel sounds are active. No bruits. EXTREMITIES: He has pedal edema from the knees down. Chronic signs of long-standing pedal edema. Peripheral pulses are good. BREASTS: Normal male breasts. RECTAL: Deferred. GENITALIA: Deferred. NEUROLOGIC: Cranial nerves II-XII intact. No gross defects. Sensation normal, strength normal. Deep tendon reflexes equal bilaterally with Babinski negative. MENTAL STATUS: Alert and oriented x3. IMPRESSION: 1. Vomiting. 2. Weakness. 3. Possible viral syndrome. 4. History of congestive heart failure. 5. History of hypoxia. 6. Obstructive sleep apnea. 7. History of atrial fibrillation, on Xarelto with store keeper Dr. Neff. PLAN: We will have him hydrate himself with clear liquids. We will move his diet back to clear liquids and observe. Possible discharge tomorrow. No signs of a CVA at this time. MTDD
[2017-04-19] MEDS: VESICARE 10 MG PO SCH ×2 (08:24→10:07)
[2017-04-19] MEDS: ACETAMINOPHEN 500 MG TABLET PO PRN (08:24)
[2017-04-19] MEDS: METFORMIN 500 MG TABLET PO SCH (10:06)
[2017-04-19] MEDS: BUMETANIDE 1 MG TABLET PO SCH (10:06)
[2017-04-19] MEDS: POTASSIUM CHLORIDE 10 MEQ TAB PO SCH (10:07)
[2017-04-19] MEDS: AMLODIPINE BESYLATE 5MG TAB PO SCH (10:07)
[2017-04-19] MEDS: RIVAROXABAN 20 MG TABLET PO SCH (10:07)
[2017-04-19] MEDS: ALLOPURINOL 100 MG TAB PO SCH (10:07)
--- NOTE | 2017-04-20 12:31 | Discharge Summary ---
DATE OF DISCHARGE: 04/19/2017 DISCHARGE DIAGNOSES: 1. Weakness, resolving. 2. Vomiting, resolving. 3. Diarrhea, resolving. 4. Viral syndrome. 5. Status post atrial fibrillation with Xarelto use. 6. History of hypoxia requiring 3L of O2 with CPAP at night. 7. History of obstructive sleep apnea. 8. History of congestive heart failure; however, his ejection fraction at the last echocardiogram in September 2016 through [facility] was normal. He only had one episode of congestive heart failure in the past. 9. Diabetes mellitus type 2. ATTENDING PHYSICIAN: Juan A Sheehan DO REASON FOR HOSPITALIZATION: This 77-year-old male developed some dizziness, sweating, and lightheadedness. He vomited bile at home x2. No diarrhea. Vomited once in the hospital room when he came down from the ER. He uses home oxygen at 3L/min with a CPAP. He was seen by Dr. Hathaway, admitted to the hospital for weakness as an observation patient. SIGNIFICANT FINDINGS: Troponin T was normal. CK-MB normal. Electrolytes are normal except for the chloride was 93. BUN 39, creatinine 1.7, glucose 198. He is a diabetic. WBC 7800, hemoglobin 12.8, segs 79, lymphs 10. Urine unremarkable. Specific gravity 1.015. Head CT with no acute intracranial process, [id number] chronic small vessel ischemic changes with remote right frontal cortical infarct, chronic right maxillary sinusitis. EKG with right bundle branch block, PVCs present, no acute ST-T-wave changes, atrial fibrillation. THERAPY PROVIDED: I switched his diet to clear liquids and continued his home medication. HOSPITAL COURSE: Unremarkable. He is feeling much better on the day of discharge. CONDITION ON DISCHARGE: Much improved. DISCHARGE INSTRUCTIONS: Follow up with Lurdes Castillo in approximately 1 week. Continue the home medications of simvastatin 20 mg at bedtime, Xarelto 20 mg daily, potassium chloride 10 mEq daily, metformin 850 b.i.d., Lantus 26 units at p.m., [place] 2 mg subcu every 7 days, vitamin D 1000 units daily, Bumex 1 mg b.i.d., vitamin C 1000 mg daily, amlodipine 5 mg daily, Zyloprim 300 mg daily. Continue to wear the CPAP at night. Stay off the Vesicare. [facility] CENTERHumaira
== END 2017-04-19 11:20 | disposition home or self-care (01) ==
LOC: ER 06:50 → MEDSURG 09:53
PROVIDERS: ADMIT Internal Medicine; ATTEND Internal Medicine
DX: R53.1 Weakness (principal); R42 Dizziness and giddiness; R11.10 Vomiting, unspecified; B34.9 Viral infection, unspecified; I48.91 Unspecified atrial fibrillation; Z79.01 Long term (current) use of anticoagulants; G47.33 Obstructive sleep apnea (adult) (pediatric); I50.9 Heart failure, unspecified; E11.9 Type 2 diabetes mellitus without complications; Z79.4 Long term (current) use of insulin; I10 Essential (primary) hypertension; Z85.72 Personal history of non-Hodgkin lymphomas
CPT/HCPCS: 82550; 85025 ×2; 85730; 85610; 82553; 80048; 80053; 81001; 84443; 84484; 70450; G0378 ×2; A9500; 99220; 99285; J7030

== ENCOUNTER 2017-11-02 07:03 | Day surgery (SDC) | payer MEDICARE, BC ==
[2017-11-02] MEDS ORDERED: MIDAZOLAM HCL 2MG/2ML VIAL IV ONE (07:04)
[2017-11-02] MEDS ORDERED: LIDOCAINE 1% MDV (10MG/ML) 20ML VIAL SQ ONE (07:04)
[2017-11-02] MEDS ORDERED: BUPIVACAINE 0.5% (5MG/ML) PF 30ML VIAL IVP ONE (07:04)
[2017-11-02] MEDS ORDERED: PROPOFOL 10 MG/ML VIAL IV ONE (07:04)
[2017-11-02] MEDS ORDERED: LIDOCAINE 1% W/EPI 1:200,000 MPF 30ML SQ ONE (07:04)
[2017-11-02] MEDS ORDERED: BUPIVACAINE 0.5% W/EPI MPF 30 ML VIAL IVP ONE (07:04)
[2017-11-02] MEDS ORDERED: DEXAMETHASONE PRESERVATIVE FREE 10MG/ML VIAL IV ONE (07:04)
--- NOTE | 2017-11-02 15:44 | Operative Note - [place] ---
DATE OF SURGERY: 11/02/17 PRIMARY: DR. RICKETTS PREOPERATIVE DIAGNOSIS: LUMBAR SPONDYLOSIS WITHOUT MYELOPATHY, ICD-10 CODE = M47.816. OPERATION: FLUOROSCOPICALLY-GUIDED INFILTRATION BLOCK RIGHT LUMBAR FACETS 2 -3, 3-4, 4-5, AND 5-1. SURGEON: AVEL LO D.O. ANESTHESIA: LOCAL SEDATION. ANESTHESIA PROVIDER: LUCIO ROBLERO CRNA. INDICATION: This patient presents with a history of primary back pain to the right. Diagnostics show decompression laminectomy 3-4 to 5-1, extensive spondylosis, and mild scoliosis. PROCEDURE: Intravenous line, vital sign monitoring, IV sedation, prepped and draped sterile technique. Facet levels of the lumbar spine in the area of pain on the right were identified and marked 2-3, 3-4, 4-5, and 5-1. Each one of these points on the skin infiltrated. A 22-gauge 6-inch needle into the facet with 1 mL of 0.5% Marcaine and Dexamethasone injected. Areas cleaned, topical antibiotic, and sterile dressing applied. We will monitor and evaluate. cc: Dr. Ricketts JOB NUMBER: [id number] MTDD
== END 2017-11-02 09:00 | disposition home or self-care (01) ==
LOC: SUR 07:03
PROVIDERS: ATTEND Pain Medicine Interventional Pain Medicine
DX: M47.816 Spondylosis without myelopathy or radiculopathy, lumbar region (principal); I48.91 Unspecified atrial fibrillation; Z79.01 Long term (current) use of anticoagulants; I10 Essential (primary) hypertension; E11.9 Type 2 diabetes mellitus without complications; Z79.84 Long term (current) use of oral hypoglycemic drugs; Z79.4 Long term (current) use of insulin; E78.00 Pure hypercholesterolemia, unspecified; M10.9 Gout, unspecified